=== PATIENT | male | born 1945 | race Caucasian/White ===

== ENCOUNTER 2018-07-30 13:02 | Observation (INO) | payer MEDICARE, BC ==
--- NOTE | 2018-07-30 13:32 | ED ---
Chest Pain HPI - General Chief Complaint: Chest Pain Stated Complaint: chest pain Time Seen by Provider: 07/30/18 13:22 Source: patient, RN notes reviewed, old records reviewed Mode of arrival: wheelchair Limitations: no limitations - History of Present Illness Initial Comments: This is a 72-year-old male to the ER for evasive chest pain. Left-sided chest pain heaviness on his chest feels like someone is pressing down his chest. Patient's history of heart disease and chest pain. States prior heart attack with similar also included arm pain. Patient has no recent travel history no sick contacts no fevers, maybe some mild diaphoresis no significant shortness of breath. No recent cardiac evaluation MD Complaint: chest pain -: minutes(s) Onset: during rest Pain Location: substernal, left chest, right chest Pain Radiation: none Severity: moderate Quality: tightness, heaviness Consistency: constant Improves With: nitroglycerin Worsens With: nothing Anginal Symptoms: diaphoresis, dyspnea Treatments Prior to Arrival: none - Related Data Home Medications Medication Instructions Recorded Confirmed Aspirin 325 mg PO HS 11/23/15 07/30/18 Atorvastatin [Lipitor] 20 mg PO HS 11/23/15 07/30/18 Hydrochlorothiazide 12.5 mg PO QAM 11/23/15 07/30/18 Losartan Potassium 100 mg PO QAM 11/23/15 07/30/18 Nitroglycerin Sl Tabs [Nitrostat] 0.4 mg SL Q5M PRN 11/23/15 07/30/18 Omeprazole [PriLOSEC] 40 mg PO QAM 11/23/15 07/30/18 amLODIPine [Norvasc] 2.5 mg PO QAM 11/23/15 07/30/18 metFORMIN HCL [Glucophage] 500 mg PO TID 11/23/15 07/30/18 Tamsulosin HCl [Flomax] 0.4 mg PO HS 07/30/18 07/30/18 Allergies Allergy/AdvReac Type Severity Reaction Status Date / Time Cephalosporins Allergy Rash/Hives. Verified 07/30/18 13:30 ITCHING ezetimibe Allergy Rash/Hives Verified 07/30/18 13:30 Iodinated Contrast- Oral and Allergy Rash/Hives, Verified 07/30/18 13:30 IV Dye ITCHING [Iodinated Contrast Media - IV Dye] Penicillins Allergy Rash/Hives. Verified 07/30/18 13:30 ITCHING rosuvastatin calcium Allergy Unknown Verified 07/30/18 13:30 [From Crestor] Sulfa (Sulfonamide Allergy Rash/Hives. Verified 07/30/18 13:30 Antibiotics) ITCHING Review of Systems ROS Statement: Those systems with pertinent positive or pertinent negative responses have been documented in the HPI. ROS Other: All systems not noted in ROS Statement are negative. EKG Findings - EKG Comments: EKG Findings:: EKG shows normal sinus rhythm rate of 71, NM 182, QRS 120, QTC 445 Past Medical History Past Medical History: Coronary Artery Disease (CAD), Cancer, Diabetes Mellitus, GERD/Reflux, Hyperlipidemia, Hypertension, Myocardial Infarction (non Q-wave) Additional Past Medical History / Comment(s): MELANOMA Last Myocardial Infarction Date:: 08/02/2006 History of Any Multi-Drug Resistant Organisms: None Reported Past Surgical History: Heart Catheterization, Heart Catheterization With Stent, Hernia Repair Additional Past Surgical History / Comment(s): MELANOMA REMOVED FROM LEFT EAR & UPPER LIP. ANGIOPLASTY IN 2007. Additional Past Anesthesia/Blood Transfusion Reaction / Comment(s): DIFFICULTY URINATING AFTER ANESTHESIA. Date of Last Stent Placement:: Past Psychological History: No Psychological Hx Reported Smoking Status: Former smoker Past Alcohol Use History: None Reported Past Drug Use History: None Reported - Past Family History Mother Family Medical History: Cancer General Exam Limitations: no limitations General appearance: alert, in no apparent distress Head exam: Present: atraumatic, normocephalic, normal inspection Eye exam: Present: normal appearance, PERRL, EOMI. Absent: scleral icterus, conjunctival injection, periorbital swelling ENT exam: Present: normal exam, mucous membranes moist Neck exam: Present: normal inspection. Absent: tenderness, meningismus, lymphadenopathy Respiratory exam: Present: normal lung sounds bilaterally. Absent: respiratory distress, wheezes, rales, rhonchi, stridor Cardiovascular Exam: Present: regular rate, normal rhythm, normal heart sounds. Absent: systolic murmur, diastolic murmur, rubs, gallop, clicks GI/Abdominal exam: Present: soft, normal bowel sounds. Absent: distended, tenderness, guarding, rebound, rigid Extremities exam: Present: normal inspection, full ROM, normal capillary refill. Absent: tenderness, pedal edema, joint swelling, calf tenderness Back exam: Present: normal inspection Neurological exam: Present: alert, oriented X3, CN II-XII intact Psychiatric exam: Present: normal affect, normal mood Skin exam: Present: warm, dry, intact, normal color. Absent: rash Course Vital Signs 07/30/18 07/30/18 13:03 14:30 Temperature 97.6 F Pulse Rate 81 67 Respiratory 18 18 Rate Blood Pressure 151/84 141/83 O2 Sat by Pulse 97 100 Oximetry - Reevaluation(s) Reevaluation #1: 07/30/18 15:21 Medical records reviewed Reevaluation #2: 07/30/18 15:21 A she still having pain Chest Pain MDM - MDM 69 female the ER for evaluation chest pain. Patient is history of CAD with stenting 10 years ago. Patient be admitted for cardiac observation Critical Care Time Critical Care Time: Yes Total Critical Care Time: 31 Disposition Clinical Impression: Chest pain Disposition: ADMITTED IP TO THIS HOSP Condition: Undetermined Instructions (If sedation given, give patient instructions): Chest Pain (ED) Is patient prescribed a controlled substance at d/c from ED?: No Referrals: Ismael Johnson DO [Primary Care Provider] - 1-2 days
--- NOTE | 2018-07-30 14:07 | XR ---
EXAMINATION TYPE: XR chest 2V DATE OF EXAM: 07/30/2018 COMPARISON: NONE TECHNIQUE: PA and lateral views submitted. HISTORY: Chest pain FINDINGS: There is limited inspiration. Hypertrophic change of the vertebral column. Assessment interstitium li mited by reduced inspiration. Arthropathy of the shoulders. The lungs are clear and there is no pneu mothorax, pleural effusion, or focal pneumonia. IMPRESSION: 1. No acute process.
[2018-07-30 14:28] LABS: Basophils % (A) 0 %; Eosinophils # (A) 0.2 k/uL (0-0.7); Eosinophils % (A) 1 %; HCT 47.1 % (39.0-53.0); HGB 15.6 gm/dL (13.0-17.5); Lymphocytes # (A) 1.8 k/uL (1.0-4.8); Lymphocytes % (A) 16 %; MCH 29.8 pg (25.0-35.0); MCHC 33.1 g/dL (31.0-37.0); MCV 90.1 fL (80.0-100.0); Mean Platelet Volume 7.6; Monocytes # (A) 0.8 k/uL (0-1.0); Monocytes % (A) 7 %; Neutrophils # (A) 8.3 k/uL (1.3-7.7); Neutrophils % (A) 73 %; Platelet Count 263 k/uL (150-450); RBC 5.23 m/uL (4.30-5.90); RDW 13.3 % (11.5-15.5); WBC 11.3 k/uL (3.8-10.6)
[2018-07-30 14:37] LABS: Prothrombin Time 10.7 sec (9.0-12.0)
[2018-07-30 14:43] LABS: ALT 40 U/L (21-72); AST 28 U/L (17-59); Albumin 4.1 g/dL (3.5-5.0); Alkaline Phosphatase 78 U/L (38-126); Anion Gap 7 mmol/L; Blood Urea Nitrogen 13 mg/dL (9-20); Calcium 9.6 mg/dL (8.4-10.2); Carbon Dioxide 29 mmol/L (22-30); Chloride 104 mmol/L (98-107); Glucose 151 mg/dL (74-99); Lipase 76 U/L (23-300); Magnesium 1.5 mg/dL (1.6-2.3); Potassium 4.2 mmol/L (3.5-5.1); Sodium 140 mmol/L (137-145); Total Bilirubin 0.7 mg/dL (0.2-1.3); Total Protein 7.3 g/dL (6.3-8.2)
[2018-07-30 14:51] LABS: Creatine Kinase 96 U/L (55-170)
[2018-07-30 15:04] LABS: Creatine Kinase MB 2.1 ng/mL (0.0-2.4); Troponin I <0.012 ng/mL (0.000-0.034)
[2018-07-30] MEDS ORDERED: NITROGLYCERIN SL TABS 0.4 MG TAB SUBLINGUAL PRN (15:18)
[2018-07-30] MEDS ORDERED: ASPIRIN 81 MG PO STA (15:18)
[2018-07-30 20:18] LABS: Glucose,Whole Blood 178 mg/dL (75-99)
[2018-07-30 20:44] LABS: Creatine Kinase 83 U/L (55-170)
[2018-07-30 20:57] LABS: Creatine Kinase MB 1.4 ng/mL (0.0-2.4); Troponin I <0.012 ng/mL (0.000-0.034)
[2018-07-30] MEDS ORDERED: TAMSULOSIN 0.4 MG CAP.ER.24H PO SCH (21:00)
[2018-07-30] MEDS ORDERED: ASPIRIN 325 MG TAB PO SCH (21:00)
[2018-07-30] MEDS ORDERED: ATORVASTATIN 20 MG TAB PO SCH (21:00)
[2018-07-31 00:48] LABS: Cholesterol 135 mg/dL (<200); HDL Cholesterol 33 mg/dL (40-60); LDL Cholesterol,Calculated 65 mg/dL (0-99); Triglycerides 187 mg/dL (<150)
[2018-07-31 01:35] LABS: Creatine Kinase 78 U/L (55-170)
[2018-07-31 01:48] LABS: Creatine Kinase MB 1.4 ng/mL (0.0-2.4); Troponin I <0.012 ng/mL (0.000-0.034)
[2018-07-31 06:48] LABS: Glucose,Whole Blood 171 mg/dL (75-99)
[2018-07-31] MEDS ORDERED: PANTOPRAZOLE 40 MG TABLET PO SCH (07:30)
[2018-07-31] MEDS ORDERED: ALPRAZolam 0.5 MG TAB PO PRN (08:00)
[2018-07-31] MEDS ORDERED: ATORVASTATIN 80 MG TAB PO STA (08:00)
[2018-07-31] MEDS ORDERED: SODIUM CHLORIDE 0.9% 1,000 ML in EMPTY BAG 1 BAG IV ONE (08:00)
[2018-07-31] MEDS ORDERED: NITROGLYCERIN SL TABS 0.4 MG TAB SUBLINGUAL PRN (08:00)
[2018-07-31] MEDS ORDERED: ALPRAZolam 0.25 MG TAB PO PRN (08:00)
[2018-07-31] MEDS ORDERED: ASPIRIN 325 MG TAB PO STA (08:00)
[2018-07-31 08:12] VITALS: RESP 16
[2018-07-31] MEDS ORDERED: LOSARTAN 50 MG TAB PO SCH (09:00)
[2018-07-31] MEDS ORDERED: amLODIPine 2.5 MG TAB PO SCH (09:00)
[2018-07-31] MEDS ORDERED: HYDROCHLOROTHIAZIDE 12.5 MG CAP PO SCH (09:00)
[2018-07-31] MEDS ORDERED: Magnesium Replacement Protocol 1 EACH MISC MISCELLANE PRN (09:05)
--- NOTE | 2018-07-31 09:07 | P.CRDCN ---
History of Present Illness History of present illness: This is a pleasant 72-year-old male past medical history significant for coronary artery disease status post PCI to the circumflex artery 2006 and again in 2007, diabetes mellitus, dyslipidemia, hypertension, gastroesophageal reflux disease and former nicotine dependence. He follows in the office with Dr. Romero. If he has to see him in consultation for symptoms of chest pain. He presented to the hospital yesterday afternoon with symptoms of an achy sensation in the midsternal region with radiation across both sides of his chest. He states the pain was intermittent in nature and came with no specific aggravating factor. He took sublingual nitroglycerin at home and the pain started and it did relieve his discomfort although the pain did come back subsequently thereafter. He is currently chest pain-free. He denies radiation to the arm, back, neck or jaw. He also denies associated shortness of breath, dizziness, nausea, vomiting or diaphoresis. He states this pain feels similar in nature to it did in 1999 when he suffered a myocardial infarction. Although at that time he waited quite a few days before coming for evaluation and the pain was much more intense and didn't radiate to his arms which is not at this time. EKG reveals sinus mechanism with T-wave inversions noted inferiorly and left axis deviation. Chest x-ray is negative for acute cardiopulmonary process. Laboratory data reviewed, WBC 11.3, hemoglobin 15.6, platelets 263, sodium 140, potassium 4.2, magnesium 1.5, creatinine 0.82, cardiac enzymes negative 3, LDL 65 and HDL 33. Current cardiac medications include aspirin 325 mg daily, atorvastatin 20 mg daily, hydrochlorothiazide 12.5 mg daily, losartan 100 mg daily and amlodipine 2.5 mg daily. At the time of my exam: CONSTITUTIONAL: Denies fever. Denies chills. EYES: Denies blurred vision. Denies vision changes. Denies eye pain. EARS, NOSE, MOUTH & THROAT: Denies headache. Denies sore throat. Denies ear pain. CARDIOVASCULAR: Denies chest pain. Denies shortness of breath. Denies orthopnea. Denies PND. Denies palpitations. RESPIRATORY: Denies cough. GASTROINTESTINAL: Denies abdominal pain. Denies diarrhea. Denies constipation. Denies nausea. Denies vomiting. MUSCULOSKELETAL: Denies myalgias. INTEGUMENTARY: Denies pruitis. Denies rash. NEUROLOGIC: Denies numbness. Denies tingling. Denies weakness. PSYCHIATRIC: Denies anxiety. Denies depression. ENDOCRINE: Denies fatigue. Denies weight change. Denies polydipsia. Denies polyurina. GENITOURINARY: Denies burning, hematuria or urgency with micturation. HEMATOLOGIC: Denies history of anemia. Denies bleeding. Blood pressure 157/85 heart rate 68 afebrile maintaining oxygen saturation on room air GENERAL: This is a 72-year-old occasion male in no apparent distress at the time of my examination. HEENT: Head is atraumatic, normocephalic. Pupils are equal, round. Sclerae anicteric. Conjunctivae are clear. Mucous membranes of the mouth are moist. Neck is supple. There is no jugular venous distention. No carotid bruit is heard. LUNGS: Clear to auscultation no wheezes, rales or rhonchi. No chest wall tenderness is noted on palpation or with deep breathing. HEART: Regular rate and rhythm without murmurs, rubs or gallops. S1 and S2 heard. ABDOMEN: Soft, nontender. Bowel sounds are heard. No organomegaly noted. EXTREMITIES: No evidence of peripheral edema and no calf tenderness noted. VASCULAR: Radial and dorsalis pedis pulses palpated, no evidence of clubbing. NEUROLOGIC: Patient is awake, alert and oriented x3. ASSESSMENT Unstable angina with EKG changes History of coronary artery disease status post angioplasty to the circumflex artery 2006 and again in 2007 Hypertension Dyslipidemia Diabetes mellitus Hypomagnesemia PLAN Recommend proceeding with cardiac catheterization to assess for progression of coronary artery disease. I have discussed the risks, benefits and alternative therapies for the above-mentioned procedure and for both sedation/analgesia as well as necessary blood product administration, if indicated, as they pertain to this patient. The patient has indicated understanding and acceptance of the risks and procedures discussed. Questions have been answered appropriately and he is agreeable to move forward with the above stated procedure. Replace magnesium per protocol. Obtain 2-D echocardiogram and Doppler study to assess cardiac structure and function. Resume aspirin, atorvastatin, hydrochlorothiazide, losartan and amlodipine as previously ordered. Further recommendations to follow based upon clinical course. Thank you kindly for this consultation. Nurse Practitioner note has been reviewed, I agree with a documented findings and plan of care. Patient was seen and examined. 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 ANGIOPLASTY IN 2007.rt rotator cuff Additional Past Anesthesia/Blood Transfusion Reaction / Comment(s): DIFFICULTY URINATING AFTER ANESTHESIA. Date of Last Stent Placement:: Smoking Status: Former smoker - Past Family History Mother Family Medical History: Cancer Medications and Allergies Home Medications Medication Instructions Recorded Confirmed Type Aspirin 325 mg PO HS 11/23/15 07/30/18 History Atorvastatin [Lipitor] 20 mg PO HS 11/23/15 07/30/18 History Hydrochlorothiazide 12.5 mg PO QAM 11/23/15 07/30/18 History Losartan Potassium 100 mg PO QAM 11/23/15 07/30/18 History Nitroglycerin Sl Tabs [Nitrostat] 0.4 mg SL Q5M PRN 11/23/15 07/30/18 History Omeprazole [PriLOSEC] 40 mg PO QAM 11/23/15 07/30/18 History amLODIPine [Norvasc] 2.5 mg PO QAM 11/23/15 07/30/18 History metFORMIN HCL [Glucophage] 500 mg PO TID 11/23/15 07/30/18 History Tamsulosin HCl [Flomax] 0.4 mg PO HS 07/30/18 07/30/18 History Allergies Allergy/AdvReac Type Severity Reaction Status Date / Time Cephalosporins Allergy Rash/Hives. Verified 07/30/18 13:30 ITCHING ezetimibe Allergy Rash/Hives Verified 07/30/18 13:30 Iodinated Contrast- Oral and Allergy Rash/Hives, Verified 07/30/18 13:30 IV Dye ITCHING [Iodinated Contrast Media - IV Dye] Penicillins Allergy Rash/Hives. Verified 07/30/18 13:30 ITCHING rosuvastatin calcium Allergy Unknown Verified 07/30/18 13:30 [From Crestor] Sulfa (Sulfonamide Allergy Rash/Hives. Verified 07/30/18 13:30 Antibiotics) ITCHING Physical Exam Vitals: Vital Signs Temp Pulse Pulse Resp BP BP Pulse Ox 07/31/18 08:00 97.6 F 68 16 157/85 95 07/31/18 07:54 65 18 07/31/18 04:00 98.5 F 65 18 156/77 96 07/31/18 03:49 18 07/30/18 23:17 18 07/30/18 23:11 98.7 F 73 18 165/77 97 07/30/18 20:00 98.1 F 65 18 174/74 96 07/30/18 16:44 99.2 F 83 18 156/90 98 07/30/18 16:30 65 16 07/30/18 15:28 75 18 130/89 100 07/30/18 14:30 67 18 141/83 100 07/30/18 13:03 97.6 F 81 18 151/84 97 Intake and Output 07/30/18 07/31/18 07/31/18 22:59 06:59 14:59 Other: Voiding Method Toilet Toilet Toilet # Voids 1 1 Results 07/30/18 13:32 07/30/18 13:32 Cardiac Enzymes 07/30/18 07/30/18 07/30/18 Range/Units 13:32 13:32 20:11 AST 28 (17-59) U/L CK-MB (CK-2) 2.1 1.4 (0.0-2.4) ng/mL Troponin I <0.012 <0.012 (0.000-0.034) ng/mL 07/31/18 Range/Units 00:58 AST (17-59) U/L CK-MB (CK-2) 1.4 (0.0-2.4) ng/mL Troponin I <0.012 (0.000-0.034) ng/mL Coagulation 07/30/18 Range/Units 13:32 PT 10.7 (9.0-12.0) sec APTT 24.0 (22.0-30.0) sec Lipids 07/30/18 Range/Units 13:32 Triglycerides 187 H (<150) mg/dL Cholesterol 135 (<200) mg/dL HDL Cholesterol 33 L (40-60) mg/dL CBC 07/30/18 Range/Units 13:32 WBC 11.3 H (3.8-10.6) k/uL RBC 5.23 (4.30-5.90) m/uL Hgb 15.6 (13.0-17.5) gm/dL Hct 47.1 (39.0-53.0) % Plt Count 263 (150-450) k/uL Comprehensive Metabolic Panel 07/30/18 Range/Units 13:32 Sodium 140 (137-145) mmol/L Potassium 4.2 (3.5-5.1) mmol/L Chloride 104 (98-107) mmol/L Carbon Dioxide 29 (22-30) mmol/L BUN 13 (9-20) mg/dL Creatinine 0.82 (0.66-1.25) mg/dL Glucose 151 H (74-99) mg/dL Calcium 9.6 (8.4-10.2) mg/dL AST 28 (17-59) U/L ALT 40 (21-72) U/L Alkaline Phosphatase 78 (38-126) U/L Total Protein 7.3 (6.3-8.2) g/dL Albumin 4.1 (3.5-5.0) g/dL Current Medications Generic Name Dose Route Start Last Admin Trade Name Freq PRN Reason Stop Dose Admin Alprazolam 0.25 mg 07/31/18 08:00 Xanax PO Q6HR PRN Mild Anxiety Alprazolam 0.5 mg 07/31/18 08:00 Xanax PO Q6HR PRN Moderate Anxiety Amlodipine Besylate 2.5 mg 07/31/18 09:00 Norvasc PO QAM [facility] Aspirin 325 mg 08/01/18 09:00 Aspirin PO DAILY [facility] Atorvastatin Calcium 20 mg 07/30/18 21:00 07/30/18 19:52 Lipitor PO 20 mg HS [facility] Administration Hydrochlorothiazide 12.5 mg 07/31/18 09:00 Hydrodiuril PO QAM [facility] Sodium Chloride 1,000 ml/ IV 1,000 mls @ 81.64 mls/hr 07/31/18 08:00 Solution IV 07/31/18 20:14 .[id number] ONE 1 ML/KG/HR Losartan Potassium 100 mg 07/31/18 09:00 Cozaar PO QAM [facility] Nitroglycerin 0.4 mg 07/30/18 15:18 Nitrostat SUBLINGUAL Q5M PRN Chest Pain Pantoprazole Sodium 40 mg 07/31/18 07:30 Protonix PO AC-BRKFST [facility] Tamsulosin HCl 0.4 mg 07/30/18 21:00 07/30/18 19:52 Flomax PO 0.4 mg HS [facility] Administration Intake and Output 07/30/18 07/31/18 07/31/18 22:59 06:59 14:59 Other: Voiding Method Toilet Toilet Toilet # Voids 1 1 07/30/18 13:32 07/30/18 13:32
[2018-07-31] MEDS ORDERED: FAMOTIDINE 20 MG/2 ML VIAL IV STA (09:26)
[2018-07-31] MEDS ORDERED: diphenhydrAMINE 50 MG/ML 1 ML VIAL IVP STA (09:26)
[2018-07-31] MEDS ORDERED: methylPREDNISolone SOD SUCCI 125 MG/2 ML VIAL IV STA (09:26)
[2018-07-31] MEDS: MAGNESIUM SULFATE-D5W PMX 1 GM in DEXTROSE/WATER 1 100ML.BAG IVPB SCH ×2 (09:51→11:02)
--- NOTE | 2018-07-31 10:06 | ECHOF ---
Referral Reason: MEASUREMENTS -------- HEIGHT: 177.8 cm WEIGHT: 81.6 kg BP: IVSd: 1.1 cm (0.6 - 1.1) LVIDd: 4.1 cm (3.9 - 5.3) LVPWd: 1.0 cm (0.6 - 1.1) IVSs: 1.7 cm LVIDs: 2.6 cm LVPWs: 1.6 cm LAESV Index (A-L): 26.22 ml/m Ao Diam: 3.5 cm (2.0 - 3.7) AV Cusp: 2.2 cm (1.5 - 2.6) LA Diam: 3.6 cm (2.7 - 3.8) MV EXCURSION: 13.536 mm (> 18.000) MV EF SLOPE: 97 mm/s (70 - 150) EPSS: 0.5 cm RAP: 5.00 mmHg RVSP: 9.86 mmHg FINDINGS -------- Sinus rhythm. This was a technically good study. The left ventricular size is normal. Left ventricular wall thickness is normal. Overall left vent ricular systolic function is normal with, an EF between 55 - 60 %. Mid inferior LV wall motion is h ypokinetic. The right ventricle is normal in size and function. The left atrium is normal in size. The right atrium is normal in size. The aortic valve is trileaflet, and appears structurally normal. No aortic stenosis or regurgitation. There is trace mitral regurgitation. Trace tricuspid regurgitation present. The right ventricular systolic pressure, as measured by Dopp ler, is 9.86mmHg. Pulmonic valve appears structurally normal. The aortic root size is normal. IVC Not well visulized. The pericardium is normal. CONCLUSIONS -------- 1. Sinus rhythm. 2. This was a technically good study. 3. The left ventricular size is normal. 4. Left ventricular wall thickness is normal. 5. Overall left ventricular systolic function is normal with, an EF between 55 - 60 %. 6. Mid inferior LV wall motion is hypokinetic. 7. The right ventricle is normal in size and function. 8. The left atrium is normal in size. 9. The right atrium is normal in size. 10. The aortic valve is trileaflet, and appears structurally normal. No aortic stenosis or regurgitat ion. 11. There is trace mitral regurgitation. 12. Trace tricuspid regurgitation present. 13. The right ventricular systolic pressure, as measured by Doppler, is 9.86mmHg. 14. Pulmonic valve appears structurally normal. 15. The aortic root size is normal. 16. IVC Not well visulized. 17. The pericardium is normal. BUS STARTER: Rita Granger RDCS
[2018-07-31] MEDS ORDERED: IV FLUID CONTINUATION 850 ML IV ONE (12:15)
[2018-07-31] MEDS ORDERED: LIDOCAINE 1% INJ 10MG/ML (20 ML MDV) ONE (12:26)
[2018-07-31] MEDS ORDERED: fentaNYL (PF) 50 MCG/ML 2 ML AMP ONE (12:27)
[2018-07-31] MEDS: MIDAZOLAM 2 MG/2 ML VIAL IVP ONE ×2 (12:28→12:31)
[2018-07-31] MEDS ORDERED: fentaNYL (PF) 50 MCG/ML 2 ML AMP IVP ONE (12:29)
[2018-07-31] MEDS ORDERED: LIDOCAINE 1% INJ 10MG/ML (20 ML MDV) SQ ONE (12:29)
[2018-07-31] MEDS ORDERED: IOPAMIDOL-370 100ML BTL INJ ONE (12:39)
[2018-07-31] MEDS ORDERED: RX INFO: IV CONTRAST WAS GIVEN 1 EACH MISC MISCELLANE PRN (13:18)
[2018-07-31 13:31] LABS: Glucose,Whole Blood 246 mg/dL (75-99)
[2018-07-31 13:32] VITALS: TEMP 99.3
[2018-07-31 15:23] VITALS: BP 166/70; PULSE 73
--- NOTE | 2018-07-31 16:10 | CC ---
CARDIAC CATHETERIZATION REPORT INDICATION: Unstable angina. PROCEDURE NOTE: After obtaining informed consent, left heart catheterization and coronary angiogram were performed via the right femoral artery using standard Jordin catheters. Patient tolerated the procedure well without any obvious immediate complications. A femoral angiogram was performed and Angio-Seal was deployed for hemostasis. Patient received moderate conscious sedation. Total sedation time was 15 minutes. FINDINGS: HEMODYNAMICS: Left ventricular end-diastolic pressure is 15 mm there is no significant gradient across aortic valve. LEFT VENTRICULOGRAM: Ventriculogram is not performed. ANGIOGRAPHIC DATA: LEFT MAIN CORONARY ARTERY: Left main coronary artery is a normal-sized vessel and is free of stenosis. Divides into left anterior descending coronary artery and circumflex coronary artery. LEFT ANTERIOR DESCENDING CORONARY ARTERY: LAD and its branches, circumflex coronary artery and its branches are free of significant stenosis. The previously stented segment in the circ appears patent. RIGHT CORONARY ARTERY : Right coronary artery shows mild nonobstructive disease. CONCLUSIONS: Patent stent within the circumflex coronary artery. PLAN: Patient's chest pain is probably noncardiac in origin and management is going to be in the form of risk factor modification and optimal medical therapy. MMODL / IJN: [id number] /
[2018-07-31 16:59] LABS: Glucose,Whole Blood 258 mg/dL (75-99)
[2018-07-31] MEDS ORDERED: INSULIN ASPART (NovoLOG) 100 UNIT/ML VIAL SQ SCH (17:30)
[2018-08-01] MEDS ORDERED: ASPIRIN 325 MG TAB PO SCH (09:00)
[2018-08-01] MEDS ORDERED: ATORVASTATIN 80 MG TAB PO SCH (09:00)
--- NOTE | 2018-08-04 22:23 | P.HPIM ---
History of Present Illness H&P Date: 07/31/18 Chief Complaint: Atypical chest pain Patient is a pleasant 72-year-old white male with known cardiac disease and stents who had left sternal chest pain radiating to his left arm and across his mid chest he took a nitroglycerin and felt better but then the pain some returned and he presented to the emergency department at [facility]. He is subsequently admitted. He currently denies any chest pain he is resting comfortably in bed awaiting cardiac catheterization. Review of Systems GENERAL: Patient denies fever. Denies chills. EYES: Denies blurred vision. Denies vision changes. Denies eye pain. EARS, NOSE, MOUTH, & THROAT: Denies headache. Denies sore throat. Denies ear pain. RESPIRATORY: Denies cough. Denies shortness of breath. Denies sputum production. Denies hemoptysis. CARDIOVASCULAR: Admits chest pain and pressure. Denies palpitations. Denies arrhythmias. GASTROINTESTINAL: Denies abdominal pain. Denies diarrhea. Denies constipation. Denies nausea. Denies vomiting. Denies heartburn. Denies blood in the stool. GENITOURINARY: Denies urinary frequency. Denies burning. Denies dysuria. Denies cloudy urine. Denies blood in the urine. MUSCULOSKELETAL: Denies myalgias. Denies joint swelling. Denies decreased range of motion beyond patients baseline. INTEGUMENTARY: Denies pruitis. Denies rash. PSYCHIATRIC: Denies suicidal or homicial ideations. ENDOCRINE: Denies weight change. Denies polydipsia. Denies polyuria. HEMATOLOGIC: Denies bleeding disorders. 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 ANGIOPLASTY IN 2007.rt rotator cuff Additional Past Anesthesia/Blood Transfusion Reaction / Comment(s): DIFFICULTY URINATING AFTER ANESTHESIA. Date of Last Stent Placement:: Smoking Status: Former smoker - Past Family History Mother Family Medical History: Cancer Medications and Allergies Home Medications Medication Instructions Recorded Confirmed Type Aspirin 325 mg PO HS 11/23/15 07/30/18 History Atorvastatin [Lipitor] 20 mg PO HS 11/23/15 07/30/18 History Hydrochlorothiazide 12.5 mg PO QAM 11/23/15 07/30/18 History Losartan Potassium 100 mg PO QAM 11/23/15 07/30/18 History Nitroglycerin Sl Tabs [Nitrostat] 0.4 mg SL Q5M PRN 11/23/15 07/30/18 History Omeprazole [PriLOSEC] 40 mg PO QAM 11/23/15 07/30/18 History amLODIPine [Norvasc] 2.5 mg PO QAM 11/23/15 07/30/18 History metFORMIN HCL [Glucophage] 500 mg PO TID 11/23/15 07/30/18 History Tamsulosin HCl [Flomax] 0.4 mg PO HS 07/30/18 07/30/18 History Allergies Allergy/AdvReac Type Severity Reaction Status Date / Time Cephalosporins Allergy Rash/Hives. Verified 07/30/18 13:30 ITCHING ezetimibe Allergy Rash/Hives Verified 07/30/18 13:30 Iodinated Contrast- Oral and Allergy Rash/Hives, Verified 07/30/18 13:30 IV Dye ITCHING [Iodinated Contrast Media - IV Dye] Penicillins Allergy Rash/Hives. Verified 07/30/18 13:30 ITCHING rosuvastatin calcium Allergy Unknown Verified 07/30/18 13:30 [From Crestor] Sulfa (Sulfonamide Allergy Rash/Hives. Verified 07/30/18 13:30 Antibiotics) ITCHING Physical Exam Osteopathic Statement: *. No significant issues noted on an osteopathic structural exam other than those noted in the History and Physical/Consult. GENERAL: This is a -72 year-old in no apparent distress at the time of examination. Pleasant and cooperative. HEENT: Head is atraumatic, normocephalic. Pupils are equal, round, and reactive to light. Sclerae anicteric. Conjunctivae are clear. Mucus membranes of the mouth are moist. Neck is supple. RESPIRATORY: Clear to auscultation. No wheezes, rales, or rhonchi. No use of accessory muscles. Patient maintaining oxygen saturation greater than 92%. No chest wall tenderness is noted on palpation or with deep breathing. CARDIOVASCULAR: Regular rate and rhythm. S1 and S2 noted. No systolic or diastolic murmur auscultated. No JVD noted. No S3 or S4 noted. GASTROINTESTINAL: No distention noted. Abdomen soft and round. Normal active bowel sounds auscultated x 4 quadrants. No pain or tenderness noted upon palpation. INTEGUMENTARY: No cyanosis. No jaundice. No rashes noted. No cellulitis noted. EXTREMITIES: 2+ peripheral pulses. No evidence of peripheral edema. No calf tenderness noted. NEUROLOGIC: Cranial nerves II-XII intact. PSYCHIATRIC: Awake, alert, and oriented X 3. Appropriate affect. Intact judgement and insight. Results CBC & Chem 7: 07/30/18 13:32 07/30/18 13:32 Thrombosis Risk Factor Assmnt - Choose All That Apply Other Risk Factors: Yes Each Risk Factor Represents 2 Points: Age 61-74 years Thrombosis Risk Factor Assessment Total Risk Factor Score: 2 Thrombosis Risk Factor Assessment Level: Low Risk Assessment and Plan Assessment: Acute atypical chest pain. Known coronary artery artery disease with previous stents. Hypertension Hyperlipidemia Diabetes type 2 (1) Chest pain Status: Acute Code(s): R07.9 - CHEST PAIN, UNSPECIFIED SNOMED Code(s): 83376790 Plan: Plan and discharge summary patient underwent a heart catheterization and was found to have patent stents with no significant stenosis or occlusions. Patient was cleared by cardiology to be discharged in the evening and he went home with the above medications please count this is his discharge summary as well as his history and physical .
== END 2018-07-31 19:30 | disposition home or self-care (01) ==
LOC: EC 13:02 → 1SOBS 15:30
PROVIDERS: ADMIT Family Medicine; ATTEND Family Medicine
DX: R07.89 Other chest pain (principal); R61 Generalized hyperhidrosis; R06.00 Dyspnea, unspecified; I25.10 Atherosclerotic heart disease of native coronary artery without angina pectoris; E83.42 Hypomagnesemia; I25.2 Old myocardial infarction; E11.9 Type 2 diabetes mellitus without complications; K21.9 Gastro-esophageal reflux disease without esophagitis; E78.5 Hyperlipidemia, unspecified; I10 Essential (primary) hypertension; Z95.5 Presence of coronary angioplasty implant and graft; Z85.820 Personal history of malignant melanoma of skin; Z79.899 Other long term (current) drug therapy; Z79.82 Long term (current) use of aspirin; Z79.84 Long term (current) use of oral hypoglycemic drugs; Z88.0 Allergy status to penicillin; Z88.2 Allergy status to sulfonamides; Z88.8 Allergy status to other drugs, medicaments and biological substances; Z88.1 Allergy status to other antibiotic agents; Z91.041 Radiographic dye allergy status; Z87.891 Personal history of nicotine dependence; Z80.9 Family history of malignant neoplasm, unspecified
CPT/HCPCS: 93005 ×2; 96365; 96366; 96375; 99291; 36415; 93306; 93458; 83880; 80061; 80053; 82550 ×2; 82553 ×2; 83690; 83735; 84484 ×2; 85025; 85610; 85730; 71046; G0378 ×2; C1894; C1769; J2250; J1200; J2930; J2001; J3010; J3475; Q9967

== ENCOUNTER → 2019-01-15 | Outpatient (CLI) | payer MEDICARE, BC ==
--- NOTE | 2019-01-15 11:26 | MR ---
EXAMINATION TYPE: MR shoulder LT wo con DATE OF EXAM: 01/15/2019 COMPARISON: Outside left shoulder x-ray from 1 week ago. HISTORY: Left shoulder pain per order. Pain with difficulty raising arm overhead for 2 months per patient. TECHNIQUE: Multiplanar, multisequence imaging of the left shoulder is performed without contrast. FINDINGS: Rotator Cuff: Increased signal distal supraspinatus tendon. Infraspinatus tendon is intact. Subscapul yesi tendon shows some increased signal and thickening. No full-thickness retracted tears are identif ied. Rotator cuff muscle bulk is preserved. Acromioclavicular Joint: Moderate narrowing with moderate to severe capsular hypertrophy. Marked effa cement underlying fat plane and coronal image 13. Mild spurring. Glenohumeral Joint: Moderate to severe narrowing with mild spurring. Small joint effusion. Labrum: The labrum appears grossly intact given limitation of non-arthrogram study. Biceps Tendon: The long head of biceps is in normal location within bicipital groove. Bone marrow signal: No focal abnormal marrow signal is appreciated. Other: Marked fluid signal subdeltoid/subacromial bursa extends centrally along the superior aspect o f the supraspinatus muscle bulk. IMPRESSION: 1. Tendinopathy of supraspinatus and subscapularis. No rotator cuff tear is evident. 2. Moderate to severe glenohumeral and acromioclavicular joint arthropathy. Underlying impingement. 3. Moderate to severe subdeltoid/subacromial bursitis.
== END | disposition home or self-care (01) ==
LOC: RADMRIMAIN 08:04
PROVIDERS: ATTEND Orthopaedic Surgery
DX: M19.012 Primary osteoarthritis, left shoulder (principal); M75.52 Bursitis of left shoulder

== ENCOUNTER 2019-02-11 08:04 | Day surgery (SDC) | payer MEDICARE, BC ==
[2019-02-04 13:30] VITALS: BMI 26.4
--- NOTE | 2019-02-09 21:53 | HP ---
HISTORY AND PHYSICAL DATE OF SURGERY: 02/11/2019 Neto Dugan is a 73-year-old patient seen with progressive left shoulder pain. Treatment options were discussed with him. He elected to proceed with left shoulder arthroscopy. Consent was obtained. Medical clearance was provided by Dr. Ismael Johnson. PAST MEDICAL HISTORY: 1. Hypertension. 2. Hyperlipidemia. 3. [id number] diabetes. PAST SURGICAL HISTORY: Right shoulder arthroscopy. DAILY MEDICATIONS: 1. Hydrochlorothiazide. 2. Lipitor. 3. Losartan. 4. Omeprazole. 5. Amlodipine. 6. Metformin. ALLERGIES: PENICILLIN. SOCIAL HISTORY: Denies current tobacco use. PHYSICAL EVALUATION OF THE LEFT SHOULDER: Flexion is 80 degrees, abduction 60 degrees, external rotation 25 degrees. There is tenderness along the anterolateral acromion and rotator cuff insertion site. Impingement is positive at 30 degrees. Distal neurovascular exam is intact. LEFT SHOULDER RADIOGRAPHS: Left shoulder radiographs revealed a type II acromion, acromioclavicular osteoarthritic changes and cystic changes of the tuberosity. Left shoulder MRI revealed glenohumeral osteoarthritis and acromioclavicular osteoarthritis as well as tendinitis. IMPRESSION: 1. Left shoulder impingement with possible rotator cuff tear. 2. Left shoulder acromioclavicular joint osteoarthritis. 3. Left shoulder glenohumeral joint osteoarthritis. 4. Hypertension. 5. Hyperlipidemia. 6. [id number] diabetes. PLAN: Left shoulder arthroscopy with subacromial decompression, possible arthroscopic rotator cuff repair, probable Taye procedure and debridement. MMODL / IJN: [id number] /
[~2019-02-11 08:04] MED LIST: CLINDAMYCIN 900 MG in DEXTROSE 5% IN WATER 50 ML IVPB ONE; DEXAMETHASONE SOD PHOSPHATE 10 MG/ML 1 ML VIAL IV ONE; LACTATED RINGERS 1,000 ML IV SCH; MIDAZOLAM 2 MG/2 ML VIAL IV PRN; ONDANSETRON 4 MG/2 ML VIAL IVP ONE; fentaNYL (PF) 50 MCG/ML 2 ML AMP IV PRN
[2019-02-11 09:07] LABS: Glucose,Whole Blood 188 mg/dL (75-99)
[2019-02-11] MEDS ORDERED: MIDAZOLAM (PF) 2 MG/2 ML VIAL IVP ONE (09:10)
[2019-02-11] MEDS ORDERED: fentaNYL (PF) 50 MCG/ML 2 ML AMP IVP ONE (09:11)
--- NOTE | 2019-02-11 09:39 | P.ANPRN ---
Procedure Note - Anesthesia - Nerve Block Performed Left Interscalene Single Time Out Performed: Yes Date of Procedure: 02/11/19 Procedure Start Time: 09:08 Location of Patient Procedure: PreOp Indication: Acute Post-Operative Pain Specifically requested for management of pain by DrTami: Jeff Giraldo Sedation Type: Sedate with meaningful contact maintained Preparation: Sterile Prep Position: Supine Catheter: None Needle Types: Pajunk Needle Gauge: 21 Technique: Ultrasound (for identification of vascular and neuronal structures. picture saved) Injectate: 0.5% Ropivacaine (see comment for volume) (20cc) Blood Aspirated: No Pain Paresthesia on Injection Noted: No Resistance on Injection: Normal Events: Uneventful and Well Tolerated
[2019-02-11] MEDS ORDERED: ROPIVACAINE 5 MG/ML 30 ML VIAL ONE (10:14)
[2019-02-11] MEDS ORDERED: SUCCINYLCHOLINE CHLORIDE 100 MG/5 ML SYR IV ONE (10:14)
[2019-02-11] MEDS ORDERED: LIDOCAINE 1% INJ 10MG/ML (20 ML MDV) ONE (10:14)
[2019-02-11] MEDS ORDERED: MIDAZOLAM 2 MG/2 ML VIAL ONE (10:14)
[2019-02-11] MEDS ORDERED: fentaNYL (PF) 50 MCG/ML 2 ML AMP ONE (10:14)
[2019-02-11] MEDS ORDERED: PROPOFOL 10 MG/ML 20 ML VIAL IV ONE (10:14)
[2019-02-11 12:09] VITALS: TEMP 96.8
[2019-02-11 12:15] LABS: Glucose,Whole Blood 179 mg/dL (75-99)
--- NOTE | 2019-02-11 12:15 | P.OP ---
Date of Procedure: 02/11/19 Preoperative Diagnosis: Left shoulder impingement Postoperative Diagnosis: 1. Left shoulder rotator cuff tear 2. Left shoulder impingement 3. Left shoulder acromioclavicular joint osteoarthritis 4. Left shoulder partial long head biceps tendon tear 5. Left shoulder labral tear Procedure(s) Performed: 1. Left shoulder arthroscopic rotator cuff repair 2. Left shoulder arthroscopic subacromial decompression 3. Left shoulder arthroscopic Taye procedure 4. Left shoulder arthroscopic biceps tenotomy 5. Left shoulder arthroscopic debridement labral tear Anesthesia: GETA, regional (Interscalene block) Surgeon: Jeff Giraldo Topology Teacher #1: Eric Salvador Estimated Blood Loss (ml): 7 Pathology: none sent Condition: stable Disposition: PACU Indications for Procedure: 73-year-old patient seen with progressive left shoulder pain. After having treatment options discussed, he elected to proceed with arthroscopy Operative Findings: see description of procedure Description of Procedure: Patient underwent an interscalene block by department of anesthesia for postoperative pain management. The patient was then taken to the operative suite. The patient underwent a general anesthetic by the department of anesthesia. The patient was placed into a lateral position and secured. There was appropriate padding of the bony prominence. Left shoulder was then prepped and draped in normal sterile orthopedic fashion. We placed the extremity in 10 pounds of longitudinal traction. A posterior incision was now made for a posterior working portal site. The trocar and cannula were inserted into the glenohumeral joint. Arthroscopy was initiated. Spinal needle was now inserted anteriorly, to ascertain the anterior working portal site. An incision was now made in that area, a trocar was inserted followed by a probe. There was partial tearing long head biceps tendon with hyperemia. There were grade 1/2 chondromalacia changes central area glenoid fossa with no osteochondral tears present. There was some superficial tearing of the anterior labrum present. I performed an arthroscopic biceps tenotomy. I debrided the superficial labral tears down to stable tissue. The residual labrum was stable. Instruments were now removed from the glenohumeral joint. Utilizing the posterior working portal site, the trocar and cannula were inserted into the subacromial space. Arthroscopy initiated. I made an incision 2 fingerbreadths lateral to the acromion. I introduced my trocar followed by my [employer] ablator. I now began ablating thick subacromial bursal tissue, which exposed the undersurface of the anterior acromion. There was diminished subacromial space. There was a very prominent anterior acromion. A motorized bur was introduced and a subacromial decompression was performed. I also excised some osteophytes off the inferior aspect of the distal clavicle. The AC joint was visualized and noted to be fairly arthritic. The motorized bur was introduced in the anterior portal site and a Taye procedure was performed without difficulty, decompressing the AC joint nicely. I turned my attention to the rotator cuff. There was a 34 centimeter intrasubstance rotator cuff tear. I debrided the margins getting down to stable tendon tissue. I now with the assistance of Luis Miguel LEE passed 4 sutures. I now began repairing the tendon in a [id number] fashion with the sutures had passed. Suture limbs were clipped. The repair was probed and found to be stable. I injected 1 mL Renyte intra-articular. Instruments now removed from the portal sites. All portal s ites were approximated with nylon suture. Sterile dressings were applied followed by a shoulder sling. Eric LEE assisted in this complex case. The patient was awakened, transferred to a bed, and taken to recovery in stable condition.
[2019-02-11 13:00] VITALS: RESP 18
[2019-02-11 13:28] VITALS: BP 133/83; PULSE 75
== END 2019-02-11 13:58 | disposition home or self-care (01) ==
LOC: OR 08:04
PROVIDERS: ATTEND Orthopaedic Surgery
DX: M75.102 Unspecified rotator cuff tear or rupture of left shoulder, not specified as traumatic (principal); M25.812 Other specified joint disorders, left shoulder; M19.012 Primary osteoarthritis, left shoulder; S46.112A Strain of muscle, fascia and tendon of long head of biceps, left arm, initial encounter; S43.492A Other sprain of left shoulder joint, initial encounter; X58.XXXA Exposure to other specified factors, initial encounter; M94.212 Chondromalacia, left shoulder; M25.712 Osteophyte, left shoulder; I25.10 Atherosclerotic heart disease of native coronary artery without angina pectoris; Z95.5 Presence of coronary angioplasty implant and graft; I25.2 Old myocardial infarction; I10 Essential (primary) hypertension; I45.10 Unspecified right bundle-branch block; E78.5 Hyperlipidemia, unspecified; E78.00 Pure hypercholesterolemia, unspecified; E11.9 Type 2 diabetes mellitus without complications; K21.9 Gastro-esophageal reflux disease without esophagitis; C43.9 Malignant melanoma of skin, unspecified; Z87.891 Personal history of nicotine dependence; Z79.82 Long term (current) use of aspirin; Z79.84 Long term (current) use of oral hypoglycemic drugs; Z79.899 Other long term (current) drug therapy; Z88.0 Allergy status to penicillin; Z88.2 Allergy status to sulfonamides; Z88.8 Allergy status to other drugs, medicaments and biological substances; Z88.1 Allergy status to other antibiotic agents; Z91.041 Radiographic dye allergy status; Z80.8 Family history of malignant neoplasm of other organs or systems; Z82.5 Family history of asthma and other chronic lower respiratory diseases; Z97.2 Presence of dental prosthetic device (complete) (partial)
CPT/HCPCS: 29827; 29826; 29824; 64415; C1713; C1765; J2250 ×2; J1100; J2405; J2001; J3010; J2795; J0330; J2704

== ENCOUNTER → 2020-01-06 | Outpatient (CLI) | payer MEDICARE, BC ==
--- NOTE | 2020-01-06 15:26 | XR ---
EXAMINATION TYPE: XR chest 2V DATE OF EXAM: 01/06/2020 COMPARISON: Prior chest x-ray 07/30/2018 HISTORY: Cough TECHNIQUE: Frontal and lateral views of the chest are obtained. FINDINGS: There is no focal air space opacity, pleural effusion, or pneumothorax seen. The cardiac silhouette size is within normal limits. Coronary artery stent is in place. Question some basilar int erstitial changes. The osseous structures are intact. IMPRESSION: No acute cardiopulmonary process. Coronary artery disease, there may be some basilar int erstitial lung disease.
== END | disposition home or self-care (01) ==
LOC: RADXRMAIN 12:18
PROVIDERS: ATTEND Family Medicine
DX: I25.10 Atherosclerotic heart disease of native coronary artery without angina pectoris (principal); R05 Cough
CPT/HCPCS: 71046

== ENCOUNTER → 2020-04-17 | Outpatient (CLI) | payer MEDICARE, BC ==
[2020-04-17 10:58] LABS: Urine Creatinine 30.3 mg/dL
[2020-04-17 11:34] LABS: African American GFR (CKD) 96.5 (60.0-200.0); Albumin 4.2 g/dL (3.80-4.90); Albumin/Globulin Ratio 1.68 (1.60-3.17); BUN/Creat Ratio 21.11 Ratio (12.00-20.00); Calcium 9.2 mg/dL (8.7-10.3); Chol/HDL Ratio 3.13; Globulin 2.5 g/dL (1.6-3.3); LDL Cholesterol,Calculated 53.6 mg/dL (0.0-131.0); Non-African American GFR(CKD) 83.3 (60.0-200.0); Potassium 3.7 mmol/L (3.5-5.5); Total Protein 6.7 g/dL (6.2-8.2); VLDL Calculation 14.4 mg/dL (5.00-40.00)
[2020-04-17 13:12] LABS: Hemoglobin A1C 6.2 % (4.0-6.0)
== END | disposition home or self-care (01) ==
LOC: LABWHC1 07:07
PROVIDERS: ATTEND Internal Medicine Endocrinology, Diabetes & Metabolism
DX: E11.65 Type 2 diabetes mellitus with hyperglycemia (principal)
CPT/HCPCS: 36415; 80053; 80061; 82043; 82570; 83036; 84443

== ENCOUNTER → 2020-07-31 | Outpatient (CLI) | payer MEDICARE, BC ==
[2020-07-31 11:27] LABS: African American GFR (CKD) 101.3 (60.0-200.0); Albumin 4.5 g/dL (3.80-4.90); Albumin/Globulin Ratio 2.05 (1.60-3.17); Anion Gap 11.2 mmol/L (4.00-12.00); Calcium 9.6 mg/dL (8.7-10.3); Carbon Dioxide 28.8 mmol/L (21.6-31.8); Chol/HDL Ratio 3.8; Globulin 2.2 g/dL (1.6-3.3); LDL Cholesterol,Calculated 87.2 mg/dL (0.0-131.0); Non-African American GFR(CKD) 87.4 (60.0-200.0); Potassium 4.3 mmol/L (3.5-5.5); Total Bilirubin 0.9 mg/dL (0.2-1.2); Total Protein 6.7 g/dL (6.2-8.2); VLDL Calculation 24.8 mg/dL (5.00-40.00)
[2020-07-31 11:28] LABS: Basophils # (A) 0.04 X 10*3/uL (0.00-0.10); Basophils % (A) 0.4 %; Eosinophils # (A) 0.15 X 10*3/uL (0.04-0.35); Eosinophils % (A) 1.6 %; HCT 44.4 % (39.6-50.0); HGB 15.2 g/dL (13.0-17.0); Lymphocytes # (A) 1.31 X 10*3/uL (0.90-5.00); Lymphocytes % (A) 14.2 %; MCH 30.3 pg (27.0-32.0); MCHC 34.2 g/dL (32.0-37.0); MCV 88.6 fL (80.0-97.0); Monocytes # (A) 0.77 X 10*3/uL (0.20-1.00); Monocytes % (A) 8.4 %; Neutrophils # (A) 6.89 X 10*3/uL (1.80-7.70); Platelet Count 261 X 10*3/uL (140-440); RBC 5.01 X 10*6/uL (4.40-5.60); RDW 13.4 % (11.5-14.5)
[2020-07-31 11:35] LABS: T4, Free (Free Thyroxine) 1.1 ng/dL (0.80-1.80)
[2020-07-31 15:29] LABS: Hemoglobin A1C 6.2 % (4.0-6.0)
== END | disposition home or self-care (01) ==
LOC: LABWHC1 07:23
PROVIDERS: ATTEND Internal Medicine Endocrinology, Diabetes & Metabolism
DX: E11.65 Type 2 diabetes mellitus with hyperglycemia (principal); I10 Essential (primary) hypertension; E78.5 Hyperlipidemia, unspecified
CPT/HCPCS: 36415; 80053; 80061; 82043; 82570; 83036; 84439; 84443; 85025

== ENCOUNTER → 2021-03-02 | Outpatient (CLI) | payer MEDICARE, BC ==
[2021-03-02 11:34] LABS: HCT 43.5 % (39.6-50.0); HGB 14.9 g/dL (13.0-17.0); MCH 30.2 pg (27.0-32.0); MCHC 34.3 g/dL (32.0-37.0); MCV 88.2 fL (80.0-97.0); Mean Platelet Volume 10.8 fL (9.5-12.2); Platelet Count 247 X 10*3/uL (140-440); RBC 4.93 X 10*6/uL (4.40-5.60); RDW 13.2 % (11.5-14.5)
[2021-03-02 14:00] LABS: Hemoglobin A1C 5.9 % (4.0-6.0)
[2021-03-02 17:24] LABS: T4, Free (Free Thyroxine) 1.2 ng/dL (0.80-1.80)
[2021-03-02 17:45] LABS: African American GFR (CKD) 95.8 (60.0-200.0); Albumin 4.3 g/dL (3.80-4.90); Albumin/Globulin Ratio 1.65 (1.60-3.17); Anion Gap 11.2 mmol/L (4.00-12.00); BUN/Creat Ratio 15.56 Ratio (12.00-20.00); Calcium 9.2 mg/dL (8.7-10.3); Carbon Dioxide 25.8 mmol/L (21.6-31.8); Chol/HDL Ratio 3.53; Globulin 2.6 g/dL (1.6-3.3); Non-African American GFR(CKD) 82.7 (60.0-200.0); Potassium 3.7 mmol/L (3.5-5.5); Total Bilirubin 0.9 mg/dL (0.3-1.2); Total Protein 6.9 g/dL (6.2-8.2)
[2021-03-02 21:38] LABS: Urine Creatinine 126.6 mg/dL
== END | disposition home or self-care (01) ==
LOC: LABWHC1 07:07
PROVIDERS: ATTEND Internal Medicine Endocrinology, Diabetes & Metabolism
DX: E78.5 Hyperlipidemia, unspecified (principal); E11.65 Type 2 diabetes mellitus with hyperglycemia; I10 Essential (primary) hypertension
CPT/HCPCS: 36415; 80053; 80061; 82043; 82570; 83036; 84439; 84443; 85027

== ENCOUNTER 2021-10-14 15:48 | Inpatient (IN) | payer MEDICARE, BC ==
[2021-10-14] MEDS ORDERED: ALBUTEROL HFA INHALER INHALATION STA (16:08)
--- NOTE | 2021-10-14 16:33 | ED ---
General Adult HPI - General Chief complaint: Shortness of Breath Stated complaint: SOB,Lower Extremity Swelling Time Seen by Provider: 10/14/21 16:04 Source: patient, RN notes reviewed, old records reviewed Mode of arrival: ambulatory Limitations: no limitations - History of Present Illness Initial comments: 75-year-old male presenting for evaluation of cough and dyspnea. Patient has had a dry cough over the past proximally one week. He was put on azithromycin by the primary care physician. He states that this medication to cause lower extremity bilateral swelling. He has a known history of CAD. He denies fever or chills. Denies myalgias. Denies upper respiratory symptoms. No vomiting or diarrhea. Patient had low oxygen saturations upon arrival. He has not been vaccinated against coronavirus. - Related Data Home Medications Medication Instructions Recorded Confirmed Aspirin 325 mg PO HS 11/23/15 02/11/19 Atorvastatin [Lipitor] 20 mg PO HS 11/23/15 02/11/19 Hydrochlorothiazide 12.5 mg PO QAM 11/23/15 02/11/19 Losartan Potassium 100 mg PO 1500 11/23/15 02/11/19 Nitroglycerin Sl Tabs [Nitrostat] 0.4 mg SL Q5M PRN 11/23/15 02/11/19 Omeprazole [PriLOSEC] 40 mg PO QAM 11/23/15 02/11/19 amLODIPine [Norvasc] 5 mg PO QAM 11/23/15 02/11/19 metFORMIN HCL [Glucophage] 500 mg PO TID 11/23/15 02/11/19 Tamsulosin HCl [Flomax] 0.4 mg PO HS 07/30/18 02/11/19 Multivitamin/Iron/Folic Acid 1 each PO DAILY 02/04/19 02/11/19 [Centrum Complete Multivit Tab] Previous Rx's Medication Instructions Recorded HYDROcodone/APAP 7.5-325MG [[place] 1 - 2 each PO Q6HR PRN #56 tab 02/11/19 7.5] hydrOXYzine pamoate [Vistaril] 25 mg PO Q6HR #40 capsule 02/11/19 Allergies Allergy/AdvReac Type Severity Reaction Status Date / Time azithromycin Allergy Unknown Verified 10/14/21 15:57 Cephalosporins Allergy Rash/Hives. Verified 10/14/21 15:57 ITCHING ezetimibe Allergy Rash/Hives Verified 10/14/21 15:57 Iodinated Contrast Media Allergy Rash/Hives, Verified 10/14/21 15:57 [Iodinated Contrast Media - ITCHING IV Dye] Penicillins Allergy Rash/Hives. Verified 10/14/21 15:57 ITCHING rosuvastatin calcium Allergy Unknown Verified 10/14/21 15:57 [From Crestor] Sulfa (Sulfonamide Allergy Rash/Hives. Verified 10/14/21 15:57 Antibiotics) ITCHING Review of Systems ROS Statement: Those systems with pertinent positive or pertinent negative responses have been documented in the HPI. ROS Other: All systems not noted in ROS Statement are negative. 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 ANGIOPLASTY IN 2007.rt rotator cuff Additional Past Anesthesia/Blood Transfusion Reaction / Comment(s): DIFFICULTY URINATING AFTER ANESTHESIA. Date of Last Stent Placement:: Past Psychological History: No Psychological Hx Reported Smoking Status: Never smoker Past Alcohol Use History: None Reported Past Drug Use History: None Reported - Past Family History Mother Family Medical History: Cancer General Exam Limitations: no limitations General appearance: alert, in no apparent distress Head exam: Present: atraumatic, normocephalic Eye exam: Present: normal appearance, PERRL ENT exam: Present: normal exam Neck exam: Present: normal inspection. Absent: tenderness, meningismus Respiratory exam: Present: respiratory distress, rales, rhonchi (Left lung base), accessory muscle use Cardiovascular Exam: Present: regular rate, normal rhythm GI/Abdominal exam: Present: soft. Absent: distended, tenderness, guarding Extremities exam: Present: pedal edema. Absent: calf tenderness Neurological exam: Present: alert, oriented X3, CN II-XII intact. Absent: motor sensory deficit Psychiatric exam: Present: normal affect, normal mood Skin exam: Present: warm, dry, intact. Absent: cyanosis, diaphoretic Course Vital Signs 10/14/21 10/14/21 10/14/21 15:50 16:07 18:07 Temperature 100.5 F H Pulse Rate 98 82 Respiratory 18 30 H 24 Rate Blood Pressure 152/74 163/83 O2 Sat by Pulse 83 L 100 Oximetry EKG Findings - EKG Comments: EKG Findings:: EKG: Sinus rhythm right bundle branch block left anterior fascicular block, rate of 88, SC interval 187, QRS duration 156, QTC 452, no ST segment elevation, changes noted compared to EKG in July 2018. Medical Decision Making - Medical Decision Making 69 sexual male presenting with cough and dyspnea for the past approximately one week. Patient is hypoxic upon arrival. He has rhonchi and Rales predominantly in the left lung field. He does have pedal edema as well. No central chest pain. Patient did not know he was running a fever. He had been on azithromycin as an outpatient. Chest x-ray does show concern for an atypical pneumonia. He has a leukocytosis. He has flexion and abnormalities including hypokalemia, hypomagnesemia. His troponin and BNP are negative. His coronavirus and influenza testing are negative. D-dimer is mildly elevated and the patient will undergo CT scanning to rule out pulmonary embolism. He requires pretreatment. These results are pending. Case discussed with Dr. Rodney who will admit. - Lab Data Result diagrams: 10/14/21 16:25 10/14/21 16:25 Lab Results 10/14/21 10/14/21 10/14/21 Range/Units 16:09 16:09 16:25 WBC 16.1 H (3.8-10.6) k/uL RBC 4.67 (4.30-5.90) m/uL Hgb 14.2 (13.0-17.5) gm/dL Hct 40.9 (39.0-53.0) % MCV 87.6 (80.0-100.0) fL MCH 30.4 (25.0-35.0) pg MCHC 34.7 (31.0-37.0) g/dL RDW 14.3 (11.5-15.5) % Plt Count 288 (150-450) k/uL MPV 7.7 Neutrophils % 84 % Lymphocytes % 7 % Monocytes % 7 % Eosinophils % 0 % Basophils % 0 % Neutrophils # 13.5 H (1.3-7.7) k/uL Lymphocytes # 1.1 (1.0-4.8) k/uL Monocytes # 1.1 H (0-1.0) k/uL Eosinophils # 0.0 (0-0.7) k/uL Basophils # 0.0 (0-0.2) k/uL Hyperchromasia Slight Poikilocytosis Slight PT (9.0-12.0) sec INR (<1.2) APTT (22.0-30.0) sec D-Dimer (<0.60) mg/L FEU Sodium (137-145) mmol/L Potassium (3.5-5.1) mmol/L Chloride (98-107) mmol/L Carbon Dioxide (22-30) mmol/L Anion Gap mmol/L BUN (9-20) mg/dL Creatinine (0.66-1.25) mg/dL Est GFR (CKD-EPI)AfAm (>60 ml/min/1.73 sqM) Est GFR (CKD-EPI)NonAf (>60 ml/min/1.73 sqM) Glucose (74-99) mg/dL Plasma Lactic Acid Sadi (0.7-2.0) mmol/L Calcium (8.4-10.2) mg/dL Magnesium (1.6-2.3) mg/dL Total Bilirubin (0.2-1.3) mg/dL AST (17-59) U/L ALT (4-49) U/L Alkaline Phosphatase (38-126) U/L Troponin I (0.000-0.034) ng/mL NT-Pro-B Natriuret Pep pg/mL Total Protein (6.3-8.2) g/dL Albumin (3.5-5.0) g/dL Coronavirus (PCR) Not Detected (Not Detectd) Influenza Type A RNA Not Detected (Not Detectd) Influenza Type B (PCR) Not Detected (Not Detectd) 10/14/21 10/14/21 10/14/21 Range/Units 16:25 16:25 16:25 WBC (3.8-10.6) k/uL RBC (4.30-5.90) m/uL Hgb (13.0-17.5) gm/dL Hct (39.0-53.0) % MCV (80.0-100.0) fL MCH (25.0-35.0) pg MCHC (31.0-37.0) g/dL RDW (11.5-15.5) % Plt Count (150-450) k/uL MPV Neutrophils % % Lymphocytes % % Monocytes % % Eosinophils % % Basophils % % Neutrophils # (1.3-7.7) k/uL Lymphocytes # (1.0-4.8) k/uL Monocytes # (0-1.0) k/uL Eosinophils # (0-0.7) k/uL Basophils # (0-0.2) k/uL Hyperchromasia Poikilocytosis PT 11.4 (9.0-12.0) sec INR 1.1 (<1.2) APTT 24.8 (22.0-30.0) sec D-Dimer (<0.60) mg/L FEU Sodium 138 (137-145) mmol/L Potassium 2.4 L* (3.5-5.1) mmol/L Chloride 98 (98-107) mmol/L Carbon Dioxide 30 (22-30) mmol/L Anion Gap 10 mmol/L BUN 17 (9-20) mg/dL Creatinine 0.72 (0.66-1.25) mg/dL Est GFR (CKD-EPI)AfAm >90 (>60 ml/min/1.73 sqM) Est GFR (CKD-EPI)NonAf >90 (>60 ml/min/1.73 sqM) Glucose 196 H (74-99) mg/dL Plasma Lactic Acid Sadi 2.2 H* (0.7-2.0) mmol/L Calcium 8.7 (8.4-10.2) mg/dL Magnesium 1.3 L (1.6-2.3) mg/dL Total Bilirubin 1.5 H (0.2-1.3) mg/dL AST 28 (17-59) U/L ALT 23 (4-49) U/L Alkaline Phosphatase 86 (38-126) U/L Troponin I (0.000-0.034) ng/mL NT-Pro-B Natriuret Pep pg/mL Total Protein 7.1 (6.3-8.2) g/dL Albumin 3.8 (3.5-5.0) g/dL Coronavirus (PCR) (Not Detectd) Influenza Type A RNA (Not Detectd) Influenza Type B (PCR) (Not Detectd) 10/14/21 10/14/21 10/14/21 Range/Units 16:25 16:25 16:25 WBC (3.8-10.6) k/uL RBC (4.30-5.90) m/uL Hgb (13.0-17.5) gm/dL Hct (39.0-53.0) % MCV (80.0-100.0) fL MCH (25.0-35.0) pg MCHC (31.0-37.0) g/dL RDW (11.5-15.5) % Plt Count (150-450) k/uL MPV Neutrophils % % Lymphocytes % % Monocytes % % Eosinophils % % Basophils % % Neutrophils # (1.3-7.7) k/uL Lymphocytes # (1.0-4.8) k/uL Monocytes # (0-1.0) k/uL Eosinophils # (0-0.7) k/uL Basophils # (0-0.2) k/uL Hyperchromasia Poikilocytosis PT (9.0-12.0) sec INR (<1.2) APTT (22.0-30.0) sec D-Dimer 0.65 H (<0.60) mg/L FEU Sodium (137-145) mmol/L Potassium (3.5-5.1) mmol/L Chloride (98-107) mmol/L Carbon Dioxide (22-30) mmol/L Anion Gap mmol/L BUN (9-20) mg/dL Creatinine (0.66-1.25) mg/dL Est GFR (CKD-EPI)AfAm (>60 ml/min/1.73 sqM) Est GFR (CKD-EPI)NonAf (>60 ml/min/1.73 sqM) Glucose (74-99) mg/dL Plasma Lactic Acid Sadi (0.7-2.0) mmol/L Calcium (8.4-10.2) mg/dL Magnesium (1.6-2.3) mg/dL Total Bilirubin (0.2-1.3) mg/dL AST (17-59) U/L ALT (4-49) U/L Alkaline Phosphatase (38-126) U/L Troponin I 0.033 (0.000-0.034) ng/mL NT-Pro-B Natriuret Pep 1070 pg/mL Total Protein (6.3-8.2) g/dL Albumin (3.5-5.0) g/dL Coronavirus (PCR) (Not Detectd) Influenza Type A RNA (Not Detectd) Influenza Type B (PCR) (Not Detectd) Critical Care Time Critical Care Time: Yes Total Critical Care Time: 35 Disposition Clinical Impression: Community acquired pneumonia, Hypoxia, Hypokalemia Disposition: ADMITTED IP TO THIS [facility] Condition: Stable Is patient prescribed a controlled substance at d/c from ED?: No Referrals: Ismael Johnson DO [Primary Care Provider] - 1-2 days Time of Disposition: 18:48
[2021-10-14 16:45] LABS: ALT 23 U/L (4-49); AST 28 U/L (17-59); African American GFR (CKD) >90 (>60 ml/min/1.73 sqM); Albumin 3.8 g/dL (3.5-5.0); Alkaline Phosphatase 86 U/L (38-126); Anion Gap 10 mmol/L; Blood Urea Nitrogen 17 mg/dL (9-20); Calcium 8.7 mg/dL (8.4-10.2); Carbon Dioxide 30 mmol/L (22-30); Chloride 98 mmol/L (98-107); Glucose 196 mg/dL (74-99); Magnesium 1.3 mg/dL (1.6-2.3); Non-African American GFR(CKD) >90 (>60 ml/min/1.73 sqM); Sodium 138 mmol/L (137-145); Total Bilirubin 1.5 mg/dL (0.2-1.3); Total Protein 7.1 g/dL (6.3-8.2)
[2021-10-14 16:47] LABS: Basophils % (A) 0 %; Eosinophils % (A) 0 %; HCT 40.9 % (39.0-53.0); HGB 14.2 gm/dL (13.0-17.5); Hyperchromasia Slight; Lymphocytes # (A) 1.1 k/uL (1.0-4.8); Lymphocytes % (A) 7 %; MCH 30.4 pg (25.0-35.0); MCHC 34.7 g/dL (31.0-37.0); MCV 87.6 fL (80.0-100.0); Mean Platelet Volume 7.7; Monocytes # (A) 1.1 k/uL (0-1.0); Monocytes % (A) 7 %; Neutrophils # (A) 13.5 k/uL (1.3-7.7); Neutrophils % (A) 84 %; Platelet Count 288 k/uL (150-450); Poikilocytosis Slight; RBC 4.67 m/uL (4.30-5.90); RDW 14.3 % (11.5-15.5); WBC 16.1 k/uL (3.8-10.6)
[2021-10-14 16:52] LABS: INR 1.1 (<1.2); Partial Thromboplastin Time 24.8 sec (22.0-30.0); Prothrombin Time 11.4 sec (9.0-12.0)
[2021-10-14 17:10] LABS: Potassium 2.4 mmol/L (3.5-5.1)
[2021-10-14] MEDS ORDERED: POTASSIUM CHLORIDE ER 20 MEQ TAB.ER PO STA (17:11)
[2021-10-14] MEDS: MAGNESIUM SULFATE-D5W PMX 1 GM in DEXTROSE/WATER 1 100ML.BAG IVPB SCH ×2 (17:30→19:44)
--- NOTE | 2021-10-14 17:30 | XR ---
EXAMINATION TYPE: Slightly increasing compared to old exams. DATE OF EXAM: 10/14/2021 COMPARISON: NONE HISTORY: 01/06/2020 TECHNIQUE: Single view FINDINGS: There is coarse interstitial pulmonary edema. There are chest leads. There is poor inspirat ion. Heart size is normal. IMPRESSION: There is no pulmonary interstitial edema compared to old exam. This could be due to heart failure or acute pneumonia.
[2021-10-14] MEDS: POTASSIUM CHLORIDE 10 MEQ in WATER FOR INJECTION 1 100ML.BAG IVPB SCH ×4 (17:31→22:05)
[2021-10-14] MEDS ORDERED: LEVOFLOXACIN 500MG-D5W PMX 500 MG in DEXTROSE/WATER 1 100ML.BAG IVPB STA (17:37)
[2021-10-14] MEDS ORDERED: FAMOTIDINE 20 MG/2 ML VIAL IV STA (17:59)
[2021-10-14] MEDS ORDERED: methylPREDNISolone SOD SUCCI 125 MG/2 ML VIAL IV STA (17:59)
[2021-10-14] MEDS ORDERED: diphenhydrAMINE 50 MG/ML 1 ML VIAL IVP STA (17:59)
[2021-10-14] MEDS ORDERED: NALOXONE 0.4 MG/ML 1 ML VIAL IV PRN (18:46)
[2021-10-14] MEDS ORDERED: ACETAMINOPHEN TAB 325 MG TAB PO PRN (18:46)
[2021-10-14] MEDS: PANTOPRAZOLE 40 MG TABLET PO SCH (19:43)
--- NOTE | 2021-10-14 19:43 | CT ---
EXAMINATION TYPE: CT angio chest DATE OF EXAM: 10/14/2021 COMPARISON: None HISTORY: MARIA ALEJANDRA, positive d-dimer, hx pneumonia CT DLP: 320.5 mGycm Automated exposure control for dose reduction was used. CONTRAST: Performed with IV Contrast, patient injected with 100 mL of Isovue 370. Images obtained from the thoracic inlet to the diaphragm with IV contrast. There are 3-D post process ed images. There is patchy groundglass moderate interstitial infiltrate in both lung boswell. Heart size is dwight l. No pericardial effusion. There are a few paratracheal lymph nodes up to 1.5 cm. There are bilatera l enlarged bronchial lymph nodes up to 1.5 cm. There is no evidence of filling defect in the pulmonar y arteries. Thoracic aorta is intact. No aneurysm or dissection. No pneumothorax. No pleural effusion . The thoracic spine is intact. No compression fracture. Sternum is intact. IMPRESSION: No evidence of pulmonary embolism. Extensive interstitial infiltrates with mediastinal and bronchial adenopathy. This could relate to sarcoidosis.
--- NOTE | 2021-10-14 20:22 | HP ---
HISTORY AND PHYSICAL CHIEF COMPLAINT: Shortness of breath. HISTORY OF PRESENT ILLNESS: This 75-year-old gentleman with a past medical history of multiple medical problems, including CAD, diabetes mellitus, being followed by Dr. Johnson in the outpatient setting, was not feeling well over the past several days. The patient was treated in the outpatient setting for pneumonia with Z-Michael. Patient developed an allergy, increasing shortness of breath, and EMS was called. Pulse ox was found to be 70%. The patient also was found to have severe hypokalemia and hypomagnesemia. Lactic acid was elevated. COVID-19 and influenza were negative. The chest x-ray which was reviewed personally by me showed evidence of bilateral pneumonia. Patient was admitted for further evaluation and treatment. There is no history of any fever, rigors or chills. No history of headache, loss of consciousness, seizures. PAST MEDICAL HISTORY: History of diabetes mellitus, history of hypertension, hyperlipidemia. MEDICATIONS: Home medications are reviewed. They include metformin, Vistaril. Doses are not confirmed. ALLERGIES: ALLERGIES include ZITHROMAX and MULTIPLE ALLERGIES. FAMILY HISTORY: History of cancer. SOCIAL HISTORY: No history of smoking. REVIEW OF SYSTEMS: Fourteen-point review of systems negative except as mentioned earlier. PHYSICAL EXAMINATION: Pulse is 82, blood pressure NTD, respiration 24, temperature 101.5, pulse ox 100% on 100% non-rebreather mask. HEENT: Conjunctivae normal. NECK: No jugular venous distention. CARDIOVASCULAR: S1, S2 muffled. RESPIRATION: Breath sounds diminished at the bases. Bilateral scattered rhonchi and crackles. ABDOMEN: Soft, nontender. LEGS: No edema. No swelling. NERVOUS SYSTEM: No focal deficit. LABS: WBC 16.1, hemoglobin 14.1. Sodium ntd. Potassium 2.4. ASSESSMENT: 1. Bilateral pneumonia with acute hypoxic respiratory failure with failure of outpatient treatment. 2. Severe hypokalemia. 3. Severe hypomagnesemia. 4. Increased white count. 5. Diabetes mellitus, type 2. 6. Hypertension. 7. Hyperlipidemia. RECOMMENDATIONS AND DISCUSSION: In this 75-year-old gentleman who presented with multiple complex medical issues, we will monitor the patient closely, continue the current medications, continue with symptomatic treatment. I will initiate broad-spectrum IV antibiotics. I would also recommend intensive bronchodilators, pulmonary and infectious disease evaluations. The COVID-19 is negative. DVT prophylaxis. I would also recommend a D-dimer, and if the D- dimer is positive, CT angio of the chest also. See orders for further details. Guarded prognosis. Further recommendations to follow. Discussed with the patient's family. ROSEMARY / SHELBYN: [id number] / ANATOLIY
[2021-10-14] MEDS: SODIUM CHLORIDE 0.9% 1,000 ML IV SCH (21:07)
[2021-10-14] MEDS: HEPARIN SODIUM,PORCINE/PF 5,000 UNIT/0.5 ML SYRINGE SQ SCH (22:05)
[2021-10-14] MEDS: BUDESONIDE 1 MG/2 ML NEBU INHALATION SCH (22:22)
[2021-10-14] MEDS: FORMOTEROL FUMARATE 20 MCG/2 ML NEBU INHALATION SCH (22:22)
[2021-10-14] MEDS: IPRATROPIUM-ALBUTEROL 3 ML NEB INHALATION SCH (22:22)
[2021-10-15 07:12] LABS: Basophils % (A) 0 %; Eosinophils % (A) 0 %; HGB 13.5 gm/dL (13.0-17.5); Lymphocytes # (A) 0.5 k/uL (1.0-4.8); Lymphocytes % (A) 4 %; MCH 30.5 pg (25.0-35.0); MCHC 33.6 g/dL (31.0-37.0); MCV 90.7 fL (80.0-100.0); Mean Platelet Volume 8.3; Monocytes # (A) 0.3 k/uL (0-1.0); Monocytes % (A) 2 %; Neutrophils # (A) 10.7 k/uL (1.3-7.7); Neutrophils % (A) 93 %; Platelet Count 229 k/uL (150-450); Poikilocytosis Slight; RBC 4.41 m/uL (4.30-5.90); WBC 11.4 k/uL (3.8-10.6)
[2021-10-15 07:25] LABS: ALT 23 U/L (4-49); AST 26 U/L (17-59); African American GFR (CKD) >90 (>60 ml/min/1.73 sqM); Albumin 3.7 g/dL (3.5-5.0); Alkaline Phosphatase 75 U/L (38-126); Anion Gap 9 mmol/L; Blood Urea Nitrogen 17 mg/dL (9-20); Calcium 8.7 mg/dL (8.4-10.2); Carbon Dioxide 32 mmol/L (22-30); Chloride 100 mmol/L (98-107); Glucose 312 mg/dL (74-99); Non-African American GFR(CKD) 90 (>60 ml/min/1.73 sqM); Potassium 3.2 mmol/L (3.5-5.1); Sodium 141 mmol/L (137-145); Total Bilirubin 1.1 mg/dL (0.2-1.3); Total Protein 6.9 g/dL (6.3-8.2)
[2021-10-15] MEDS ORDERED: SODIUM CHLORIDE 0.9% 1,000 ML BAG ONE (08:00)
[2021-10-15] MEDS ORDERED: IPRATROPIUM-ALBUTEROL 3 ML NEB ONE (08:00)
[2021-10-15] MEDS ORDERED: POTASSIUM CHLORIDE ER 20 MEQ TAB.ER PO ONE ×2 (08:00→18:00)
[2021-10-15] MEDS ORDERED: FORMOTEROL FUMARATE 20 MCG/2 ML NEBU INHALATION ONE (08:00)
[2021-10-15] MEDS ORDERED: BUDESONIDE 1 MG/2 ML NEBU INHALATION ONE (08:00)
[2021-10-15] MEDS ORDERED: HEPARIN SODIUM,PORCINE 5,000 UNIT/ML 1 ML VIAL ONE (08:00)
[2021-10-15] MEDS ORDERED: PANTOPRAZOLE 40 MG TABLET PO ONE (08:00)
[2021-10-15 10:11] LABS: African American GFR (CKD) >90 (>60 ml/min/1.73 sqM); Anion Gap 10 mmol/L; Blood Urea Nitrogen 18 mg/dL (9-20); Calcium 8.3 mg/dL (8.4-10.2); Carbon Dioxide 28 mmol/L (22-30); Chloride 102 mmol/L (98-107); Glucose 323 mg/dL (74-99); Magnesium 1.9 mg/dL (1.6-2.3); Non-African American GFR(CKD) >90 (>60 ml/min/1.73 sqM); Sodium 140 mmol/L (137-145)
[2021-10-15 10:27] LABS: Potassium 2.7 mmol/L (3.5-5.1)
[2021-10-15 10:45] LABS: Glucose,Whole Blood 316 mg/dL (75-99)
[2021-10-15 10:45] LABS: Glucose,Whole Blood 300 mg/dL (75-99)
[2021-10-15 11:04] LABS: Glucose,Whole Blood 288 mg/dL (75-99)
[2021-10-15] MEDS: IPRATROPIUM-ALBUTEROL 3 ML NEB INHALATION SCH ×4 (11:14→20:28)
[2021-10-15] MEDS: FORMOTEROL FUMARATE 20 MCG/2 ML NEBU INHALATION SCH ×2 (11:17→20:28)
[2021-10-15] MEDS: BUDESONIDE 1 MG/2 ML NEBU INHALATION SCH ×2 (11:17→20:28)
[2021-10-15] MEDS ORDERED: Potassium Replacement Protocol 1 EACH MISC MISCELLANE PRN ×2 (12:17→17:56)
[2021-10-15] MEDS ORDERED: FINASTERIDE 5 MG TAB PO PRN (12:18)
[2021-10-15 12:25] LABS: Glucose,Whole Blood 262 mg/dL (75-99)
[2021-10-15] MEDS ORDERED: metFORMIN 500 MG TAB PO SCH ×2 (12:30→17:30)
[2021-10-15] MEDS ORDERED: NON FORMULARY DRUG (Losartan Potassium [Losartan Potassium] 100 MG Tablet) PO SCH (12:30)
[2021-10-15] MEDS ORDERED: hydroCHLOROthiazide 12.5 MG CAP PO SCH (12:30)
--- NOTE | 2021-10-15 12:32 | P.CNPUL ---
History of Present Illness Consult date: 10/15/21 Reason for consult: dyspnea, cough, hypoxemia, pneumonia Chief complaint: Shortness of breath with dry cough for last 10 days History of present illness: Patient is a pleasant 75-year-old male with a remote history of smoking in younger years, patient started having some shortness of breath and dry cough about 10-12 days ago, prescribed with a course of Z-Michael by PMD without any significant improvement in symptoms patient continued to have cough shortness of breath which was progressive in last 2 days also noted increased swelling of the lower extremity decided to come into emergency department. On arrival he was febrile with a temperature of 100.5 and oxygen saturation of 83% room air requiring 10 L high flow oxygen keep saturation over 90%. On specific questioning he denies any dizziness lightheadedness denies any seizure-like activity denies any nausea vomiting denies any fever or chills at home denies any sputum production denies any hemoptysis denies any GI symptoms or urinary symptoms. He does have a history of [id number] diabetes mellitus type 2 with history of coronary artery disease with 2 stents placement in the past. 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 and increased UT interval as well as QRS with borderline QT interval, white cell count is elevated at 16,100, electrolyte imbalance with severe hypokalemia with potassium is 2.4 and sodium 138, lactic acid is mildly elevated at 2.2, magnesium low 1.3 liver functions within normal limit, d-dimer mildly elevated 0.65, BNP is mildly elevated 1070, troponin within normal range of 0.033, blood glucose initially was 196 increased to 322 chest x-ray significant for interstitial edema, computed tomography scan of the chest with IV contrast negative for pulmonary embolism but however diffuse groundglass patchy interstitial infiltrate bilaterally is present borderline mediastinal lymph node with slight enlargement of paratracheal lymph nodes up to 1.5 cm, covid test is negative along with influenza A and B second BNP further elevated with number of 1630. Patient is being admitted from the emergency department on medical floor with cardiology on consult currently patient is on bronchodilators with DuoNeb 4 times a day and continuation of his home medicines along with inhaled corticosteroids, patient has been started on Levaquin with a history of multiple ALLERGIES to medications. Patient denies any similar problem in the past has however pneumonia in the remote past, has been fairly healthy retired from [employer], he has not been vaccinated against Covid but did have a flu vaccination however. Review of Systems All systems: negative Past Medical History Past Medical History: Coronary Artery Disease (CAD), Cancer, Diabetes Mellitus, GERD/Reflux, Hyperlipidemia, Hypertension, Myocardial Infarction (non Q-wave) Additional Past Medical History / Comment(s): MELANOMA Last Myocardial Infarction Date:: 08/02/2006 History of Any Multi-Drug Resistant Organisms: None Reported Past Surgical History: Heart Catheterization, Heart Catheterization With Stent, Hernia Repair Additional Past Surgical History / Comment(s): MELANOMA REMOVED FROM LEFT EAR & UPPER LIP. ANGIOPLASTY IN 2007.rt rotator cuff Additional Past Anesthesia/Blood Transfusion Reaction / Comment(s): DIFFICULTY URINATING AFTER ANESTHESIA. Date of Last Stent Placement:: Past Psychological History: No Psychological Hx Reported Smoking Status: Never smoker Past Alcohol Use History: None Reported Past Drug Use History: None Reported - Past Family History Mother Family Medical History: Cancer Medications and Allergies Home Medications Medication Instructions Recorded Confirmed Type Aspirin 325 mg PO HS 11/23/15 10/14/21 History Atorvastatin [Lipitor] 20 mg PO HS 11/23/15 10/14/21 History Losartan Potassium 100 mg PO DAILY 11/23/15 10/14/21 History Omeprazole [PriLOSEC] 40 mg PO DAILY@1300 11/23/15 10/14/21 History metFORMIN HCL [Glucophage] 1,000 mg PO AC-BRKFST 11/23/15 10/14/21 History Tamsulosin HCl [Flomax] 0.4 mg PO DAILY 07/30/18 10/14/21 History Finasteride [Proscar] 5 mg PO DAILY PRN 10/14/21 10/14/21 History amLODIPine [Norvasc] 5 mg PO HS 10/14/21 10/14/21 History hydroCHLOROthiazide [Hydrodiuril] 12.5 mg PO DAILY 10/14/21 10/14/21 History metFORMIN HCL [Glucophage] 1,500 mg PO AC-SUPPER 10/14/21 10/14/21 History sitaGLIPtin PHOSPHATE [Januvia] 100 mg PO DAILY 10/14/21 10/14/21 History Allergies Allergy/AdvReac Type Severity Reaction Status Date / Time azithromycin Allergy Unknown Verified 10/14/21 19:03 Cephalosporins Allergy Rash/Hives. Verified 10/14/21 19:03 ITCHING ezetimibe Allergy Rash/Hives Verified 10/14/21 19:03 Iodinated Contrast Media Allergy Rash/Hives, Verified 10/14/21 19:03 [Iodinated Contrast Media - ITCHING IV Dye] Penicillins Allergy Rash/Hives. Verified 10/14/21 19:03 ITCHING rosuvastatin calcium Allergy Unknown Verified 10/14/21 19:03 [From Crestor] Sulfa (Sulfonamide Allergy Rash/Hives. Verified 10/14/21 19:03 Antibiotics) ITCHING Physical Exam Vitals: Vital Signs Temp Pulse Resp BP Pulse Ox 10/15/21 11:28 91 10/15/21 11:14 90 10/15/21 08:15 98 10/15/21 08:05 91 10/15/21 08:04 91 10/15/21 07:58 91 10/15/21 03:14 96 10/15/21 02:55 98.4 F 80 20 180/90 98 10/14/21 22:43 92 10/14/21 22:26 80 10/14/21 21:08 99.4 F 78 20 158/81 97 10/14/21 21:03 96 10/14/21 18:49 81 18 159/86 100 10/14/21 18:07 82 24 163/83 100 10/14/21 16:07 30 H 10/14/21 15:50 100.5 F H 98 18 152/74 83 L Intake and Output 10/14/21 10/15/21 10/15/21 22:59 06:59 14:59 Other: Weight 79.379 kg - Constitutional General appearance: average body habitus, cooperative, disheveled, mild distress - EENT Eyes: edentulous, PERRLA ENT: normal oropharynx Ears: bilateral: normal - Neck Neck: normal ROM Carotids: bilateral: upstroke normal Thyroid: bilateral: normal size - Respiratory Respiratory: bilateral: wheezing (Both inspiratory and expiratory) - Cardiovascular Rhythm: regular Heart sounds: normal: S1, S2 - Gastrointestinal General gastrointestinal: decreased bowel sounds, soft - Integumentary Trace edema of the lower extremity Integumentary: decreased turgor - Neurologic Neurologic: CNII-XII intact - Musculoskeletal Musculoskeletal: gait normal, generalized weakness, strength equal bilaterally - Psychiatric Psychiatric: A&O x's 3, appropriate affect, intact judgment & insight Results - Laboratory Findings CBC and BMP: 10/15/21 06:00 10/15/21 09:20 PT/INR, D-dimer PT 11.4 sec (9.0-12.0) 10/14/21 16:25 INR 1.1 (<1.2) 10/14/21 16:25 D-Dimer 0.65 mg/L FEU (<0.60) H 10/14/21 16:25 Abnormal lab findings: Abnormal Labs 10/14/21 10/14/21 10/14/21 16:25 16:25 16:25 WBC 16.1 H Neutrophils # 13.5 H Lymphocytes # Monocytes # 1.1 H D-Dimer Potassium 2.4 L* Carbon Dioxide Glucose 196 H POC Glucose (mg/dL) Plasma Lactic Acid Sadi 2.2 H* Calcium Magnesium 1.3 L Total Bilirubin 1.5 H 10/14/21 10/15/21 10/15/21 16:25 06:00 06:40 WBC 11.4 H Neutrophils # 10.7 H Lymphocytes # 0.5 L Monocytes # D-Dimer 0.65 H Potassium 3.2 L Carbon Dioxide 32 H Glucose 312 H POC Glucose (mg/dL) Plasma Lactic Acid Sadi Calcium Magnesium Total Bilirubin 10/15/21 10/15/21 10/15/21 08:08 09:20 09:30 WBC Neutrophils # Lymphocytes # Monocytes # D-Dimer Potassium 2.7 L* Carbon Dioxide Glucose 323 H POC Glucose (mg/dL) 300 H 316 H Plasma Lactic Acid Sadi Calcium 8.3 L Magnesium Total Bilirubin 10/15/21 11:03 WBC Neutrophils # Lymphocytes # Monocytes # D-Dimer Potassium Carbon Dioxide Glucose POC Glucose (mg/dL) 288 H Plasma Lactic Acid Sadi Calcium Magnesium Total Bilirubin - Diagnostic Findings Chest x-ray: report reviewed, image reviewed CT scan - chest: report reviewed, image reviewed (Finding as noted above) Assessment and Plan Assessment: Acute hypoxic respiratory failure Bilateral interstitial pneumonia versus acute exacerbation of CHF primary or secondary Acute exacerbation of CHF with history of stable systolic function Mediastinal lymphadenopathy along with pulmonary infiltrate likely reactive Severe degree of electrolyte imbalance with hypokalemia and hypomagnesemia History of coronary artery disease Uncontrolled diabetes Plan: Agree with cardiovascular evaluation and obtaining echocardiogram Continue IV Levaquin We will add IV steroids 40 mg IV every 8 hourly Continue bronchodilators and inhaled corticosteroids in the form of nebulizer Currently on 10 L high flow oxygen would recommend to continue it and observe closely Consider gentle diuresis that may help Replace potassium and magnesium as per protocol We'll follow closely further recommendations pending plan of care as per clinical response of the patient Time with Patient: Greater than 30
--- NOTE | 2021-10-15 12:52 | P.PN ---
Subjective Progress Note Date: 10/15/21 This is a 75-year-old gentleman with known CAD with AK,stents, diabetes mellitus, prior nicotine dependence, recently completed antibiotics outpatient and multiple other medical issues presented to the ER with complaints of worsening dyspnea of 3-4 days inhibiting ambulation accompanied by upper and lower extremity edema. Patient reported he noticed the extremity edema after being on Z-Michael. BNP/echo ordered. Objective - Vital Signs Vital signs: Vital Signs Temp 98.4 F 10/15/21 02:55 Pulse 91 10/15/21 11:28 Resp 20 10/15/21 02:55 BP 180/90 10/15/21 02:55 Pulse Ox 96 10/15/21 03:14 Intake & Output 10/14/21 10/15/21 10/15/21 18:59 06:59 18:59 Weight 79.379 kg - Exam GENERAL: This is a -75 year-old ,Pleasant and cooperative, respiratory effort increased HEENT: Head is atraumatic, normocephalic. Pupils are equal, round, and reactive to light. Sclerae anicteric. Conjunctivae are clear. Mucus membranes of the mouth are moist. Neck is supple. RESPIRATORY: Respiratory effort labored , bibasilar crackles, greater on the left, inspiratory and expiratory wheezing CARDIOVASCULAR: Regular rate and rhythm. S1 and S2 noted. No systolic or diastolic murmur auscultated. No JVD noted. No S3 or S4 noted. GASTROINTESTINAL: No distention noted. Abdomen soft and round. Normal active bowel sounds auscultated x 4 quadrants. No pain or tenderness noted upon palpation. INTEGUMENTARY: No cyanosis. No jaundice. No rashes noted. No cellulitis noted. EXTREMITIES: 2+ peripheral pulses. mild peripheral edema. No calf tenderness noted. NEUROLOGIC: Cranial nerves II-XII intact. PSYCHIATRIC: Awake, alert, and oriented X 3. Appropriate affect. Intact ju dgement and insight. - Labs CBC & Chem 7: 10/15/21 06:00 10/15/21 09:20 Labs: Abnormal Lab Results - Last 24 Hours (Table) 10/14/21 10/14/21 10/14/21 Range/Units 16:25 16:25 16:25 WBC 16.1 H (3.8-10.6) k/uL Neutrophils # 13.5 H (1.3-7.7) k/uL Lymphocytes # (1.0-4.8) k/uL Monocytes # 1.1 H (0-1.0) k/uL D-Dimer (<0.60) mg/L FEU Potassium 2.4 L* (3.5-5.1) mmol/L Carbon Dioxide (22-30) mmol/L Glucose 196 H (74-99) mg/dL POC Glucose (mg/dL) (75-99) mg/dL Plasma Lactic Acid Sadi 2.2 H* (0.7-2.0) mmol/L Calcium (8.4-10.2) mg/dL Magnesium 1.3 L (1.6-2.3) mg/dL Total Bilirubin 1.5 H (0.2-1.3) mg/dL 10/14/21 10/15/21 10/15/21 Range/Units 16:25 06:00 06:40 WBC 11.4 H (3.8-10.6) k/uL Neutrophils # 10.7 H (1.3-7.7) k/uL Lymphocytes # 0.5 L (1.0-4.8) k/uL Monocytes # (0-1.0) k/uL D-Dimer 0.65 H (<0.60) mg/L FEU Potassium 3.2 L (3.5-5.1) mmol/L Carbon Dioxide 32 H (22-30) mmol/L Glucose 312 H (74-99) mg/dL POC Glucose (mg/dL) (75-99) mg/dL Plasma Lactic Acid Sadi (0.7-2.0) mmol/L Calcium (8.4-10.2) mg/dL Magnesium (1.6-2.3) mg/dL Total Bilirubin (0.2-1.3) mg/dL 10/15/21 10/15/21 10/15/21 Range/Units 08:08 09:20 09:30 WBC (3.8-10.6) k/uL Neutrophils # (1.3-7.7) k/uL Lymphocytes # (1.0-4.8) k/uL Monocytes # (0-1.0) k/uL D-Dimer (<0.60) mg/L FEU Potassium 2.7 L* (3.5-5.1) mmol/L Carbon Dioxide (22-30) mmol/L Glucose 323 H (74-99) mg/dL POC Glucose (mg/dL) 300 H 316 H (75-99) mg/dL Plasma Lactic Acid Sadi (0.7-2.0) mmol/L Calcium 8.3 L (8.4-10.2) mg/dL Magnesium (1.6-2.3) mg/dL Total Bilirubin (0.2-1.3) mg/dL 10/15/21 10/15/21 Range/Units 11:03 12:23 WBC (3.8-10.6) k/uL Neutrophils # (1.3-7.7) k/uL Lymphocytes # (1.0-4.8) k/uL Monocytes # (0-1.0) k/uL D-Dimer (<0.60) mg/L FEU Potassium (3.5-5.1) mmol/L Carbon Dioxide (22-30) mmol/L Glucose (74-99) mg/dL POC Glucose (mg/dL) 288 H 262 H (75-99) mg/dL Plasma Lactic Acid Sadi (0.7-2.0) mmol/L Calcium (8.4-10.2) mg/dL Magnesium (1.6-2.3) mg/dL Total Bilirubin (0.2-1.3) mg/dL Assessment and Plan Assessment: Acute hypoxic respiratory failure, secondary to bilateral interstitial pneumonia, failure of outpatient treatment, possibly a component of acute systolic CHF. Prior echo in 2019 reported normal LV function, EF 55-60% Mediastinal and bronchial adenopathy reported per CTA, possibly sarcoidosis, possibly reactive CAD with history of AK, stents Diabetes mellitus type 2, hyperglycemic, multifactorial, infection and steroid- induced. A1C ordered. Hypertension Hyperlipidemia Hypokalemia Hypomagnesemia Plan: Continue on current medication regime ,monitoring and symptomatic treatment.maintain nebulized bronchodilators, IV steroids .BMP,BNP,ECHO ordered. Potassium and magnesium replacement protocols ordered. Lantus, sliding scale and pre-meal NovoLog insulin with parameters added to med regimen.close monitoring of Accu-Cheks .A1c ordered. Pulmonary and cardiology consults in place with recommendations pending. The impression and plan of care has been dictated as directed. : I performed a history and examination of this patient, discussed the same with the dictator. I agree with the dictator's note ,documented as a scribe. Any additional findings or plans will be noted.
[2021-10-15] MEDS ORDERED: NON FORMULARY DRUG (Omeprazole 40 MG Capsule.Dr) PO SCH (13:00)
[2021-10-15] MEDS ORDERED: POTASSIUM CHLORIDE ER 20 MEQ TAB.ER PO SCH (13:00)
[2021-10-15] MEDS: HEPARIN SODIUM,PORCINE/PF 5,000 UNIT/0.5 ML SYRINGE SQ SCH ×2 (13:13→21:06)
[2021-10-15] MEDS: PANTOPRAZOLE 40 MG TABLET PO SCH (13:13)
[2021-10-15] MEDS: LEVOFLOXACIN 500MG-D5W PMX 500 MG in DEXTROSE/WATER 1 100ML.BAG IVPB SCH (13:13)
[2021-10-15 13:32] LABS: Glucose,Whole Blood 211 mg/dL (75-99)
[2021-10-15] MEDS: methylPREDNISolone SOD SUCCI 40 MG/ML 1 ML VIAL IV SCH ×2 (13:33→21:06)
[2021-10-15] MEDS: LINAGLIPTIN 5 MG TABLET PO SCH (13:33)
[2021-10-15] MEDS: TAMSULOSIN 0.4 MG CAP.ER.24H PO SCH (13:33)
[2021-10-15] MEDS: INSULIN ASPART (NovoLOG) 100 UNIT/ML VIAL SQ SCH ×4 (13:33→21:30)
[2021-10-15] MEDS: SODIUM CHLORIDE 0.9% 1,000 ML IV SCH ×2 (13:44→21:07)
[2021-10-15 16:46] LABS: Glucose,Whole Blood 244 mg/dL (75-99)
[2021-10-15] MEDS: POTASSIUM CHLORIDE ER 20 MEQ TAB.ER PO SCH ×2 (18:02→18:54)
[2021-10-15] MEDS ORDERED: INSULIN DETEMIR (LEVEMIR) 100 UNIT/ML SYR SQ SCH (21:00)
[2021-10-15] MEDS: ASPIRIN 325 MG TAB PO SCH (21:05)
[2021-10-15] MEDS: ATORVASTATIN 20 MG TAB PO SCH (21:05)
[2021-10-15] MEDS: amLODIPine 5 MG TAB PO SCH (21:06)
[2021-10-15 21:24] LABS: Glucose,Whole Blood 313 mg/dL (75-99)
--- NOTE | 2021-10-16 00:02 | P.CONS ---
History of Present Illness - Reason for Consult Consult date: 10/15/21 Atypical pneumonia Requesting physician: Kaycee Rodney - Chief Complaint Shortness of breath x few days - History of Present Illness Patient is a 75-year-old male with a past medical his significant for coronary artery disease hypertension hyperlipidemia diabetes patient presented to ER yesterday afternoon for evaluation of increasing shortness of breath and cough in this patient symptom has been going on for about a week patient mention he was evaluated by his primary care physician has been treated with a Z-Michael however did not have any improvement patient complaining of increasing shortness of breath also complaining of increasing swelling to lower extremity patient did have a mild cough which is dry in nature been up any sputum denies any nausea no vomiting no abdominal pain or any diarrhea patient on presentation to the hospital did have low-grade fever 100.5 F patient was hypoxic with O2 sats of 83% on room air did have white count of 16,000 with a left shift creatinine was normal liver enzymes are normal influenza and acevedo PCR was negative blood cultures obtained which are currently pending patient did have a chest x-ray heart failure versus acute pneumonia patient did have a CT angiogram of the chest that was negative for PE diffuse extensive interstitial infiltrate along with mediastinal and bronchial adenopathy patient was started on Levaquin because of his allergy infectious disease was consulted for further management of antibiotic therapy Review of Systems Positive point has been mentioned in the HPI rest of the systems are negative Past Medical History Past Medical History: Coronary Artery Disease (CAD), Cancer, Diabetes Mellitus, GERD/Reflux, Hyperlipidemia, Hypertension, Myocardial Infarction (non Q-wave) Additional Past Medical History / Comment(s): MELANOMA Last Myocardial Infarction Date:: 08/02/2006 History of Any Multi-Drug Resistant Organisms: None Reported Past Surgical History: Heart Catheterization, Heart Catheterization With Stent, Hernia Repair Additional Past Surgical History / Comment(s): MELANOMA REMOVED FROM LEFT EAR & UPPER LIP. ANGIOPLASTY IN 2007.rt rotator cuff Additional Past Anesthesia/Blood Transfusion Reaction / Comm: DIFFICULTY URINATING AFTER ANESTHESIA. Date of Last Stent Placement:: Past Psychological History: No Psychological Hx Reported Smoking Status: Never smoker Past Alcohol Use History: None Reported Past Drug Use History: None Reported - Past Family History Mother Family Medical History: Cancer Medications and Allergies Home Medications Medication Instructions Recorded Confirmed Type Aspirin 325 mg PO HS 11/23/15 10/14/21 History Atorvastatin [Lipitor] 20 mg PO HS 11/23/15 10/14/21 History Losartan Potassium 100 mg PO DAILY 11/23/15 10/14/21 History Omeprazole [PriLOSEC] 40 mg PO DAILY@1300 11/23/15 10/14/21 History metFORMIN HCL [Glucophage] 1,000 mg PO AC-BRKFST 11/23/15 10/14/21 History Tamsulosin HCl [Flomax] 0.4 mg PO DAILY 07/30/18 10/14/21 History Finasteride [Proscar] 5 mg PO DAILY PRN 10/14/21 10/14/21 History amLODIPine [Norvasc] 5 mg PO HS 10/14/21 10/14/21 History hydroCHLOROthiazide [Hydrodiuril] 12.5 mg PO DAILY 10/14/21 10/14/21 History metFORMIN HCL [Glucophage] 1,500 mg PO AC-SUPPER 10/14/21 10/14/21 History sitaGLIPtin PHOSPHATE [Januvia] 100 mg PO DAILY 10/14/21 10/14/21 History Allergies Allergy/AdvReac Type Severity Reaction Status Date / Time azithromycin Allergy Unknown Verified 10/14/21 19:03 Cephalosporins Allergy Rash/Hives. Verified 10/14/21 19:03 ITCHING ezetimibe Allergy Rash/Hives Verified 10/14/21 19:03 Iodinated Contrast Media Allergy Rash/Hives, Verified 10/14/21 19:03 [Iodinated Contrast Media - ITCHING IV Dye] Penicillins Allergy Rash/Hives. Verified 10/14/21 19:03 ITCHING rosuvastatin calcium Allergy Unknown Verified 10/14/21 19:03 [From Crestor] Sulfa (Sulfonamide Allergy Rash/Hives. Verified 10/14/21 19:03 Antibiotics) ITCHING Physical Exam Vitals: Vital Signs Temp Pulse Resp BP Pulse Ox 10/15/21 11:28 91 10/15/21 11:14 90 10/15/21 08:15 98 10/15/21 08:05 91 10/15/21 08:04 91 10/15/21 07:58 91 10/15/21 03:14 96 10/15/21 02:55 98.4 F 80 20 180/90 98 10/14/21 22:43 92 10/14/21 22:26 80 10/14/21 21:08 99.4 F 78 20 158/81 97 10/14/21 21:03 96 10/14/21 18:49 81 18 159/86 100 10/14/21 18:07 82 24 163/83 100 10/14/21 16:07 30 H 10/14/21 15:50 100.5 F H 98 18 152/74 83 L Intake and Output 10/14/21 10/15/21 10/15/21 22:59 06:59 14:59 Other: Weight 79.379 kg GENERAL DESCRIPTION: Elderly male lying in bed, no distress. No tachypnea or accessory muscle of respiration use. HEENT: Shows Pallor , no scleral icterus. Oral mucous membrane is dry. No pharyngeal erythema or thrush NECK: Trachea central, no thyromegaly. LUNGS: Unlabored breathing. Coarse crackles bilaterally No wheeze HEART: S1, S2, regular rate and rhythm. No loud murmur ABDOMEN: Soft, no tenderness , guarding or rigidity, no organomegaly EXTREMITIES: One plus edema of feet. SKIN: No rash, no masses palpable. NEUROLOGICAL: The patient is awake, alert, oriented x3, mood and affect normal. Results CBC & Chem 7: 10/15/21 06:00 10/15/21 15:04 Labs: Abnormal Lab Results - Last 24 Hours (Table) 10/14/21 10/14/21 10/14/21 Range/Units 16:25 16:25 16:25 WBC 16.1 H (3.8-10.6) k/uL Neutrophils # 13.5 H (1.3-7.7) k/uL Lymphocytes # (1.0-4.8) k/uL Monocytes # 1.1 H (0-1.0) k/uL D-Dimer (<0.60) mg/L FEU Potassium 2.4 L* (3.5-5.1) mmol/L Carbon Dioxide (22-30) mmol/L Glucose 196 H (74-99) mg/dL POC Glucose (mg/dL) (75-99) mg/dL Plasma Lactic Acid Sadi 2.2 H* (0.7-2.0) mmol/L Calcium (8.4-10.2) mg/dL Magnesium 1.3 L (1.6-2.3) mg/dL Total Bilirubin 1.5 H (0.2-1.3) mg/dL 10/14/21 10/15/21 10/15/21 Range/Units 16:25 06:00 06:40 WBC 11.4 H (3.8-10.6) k/uL Neutrophils # 10.7 H (1.3-7.7) k/uL Lymphocytes # 0.5 L (1.0-4.8) k/uL Monocytes # (0-1.0) k/uL D-Dimer 0.65 H (<0.60) mg/L FEU Potassium 3.2 L (3.5-5.1) mmol/L Carbon Dioxide 32 H (22-30) mmol/L Glucose 312 H (74-99) mg/dL POC Glucose (mg/dL) (75-99) mg/dL Plasma Lactic Acid Sadi (0.7-2.0) mmol/L Calcium (8.4-10.2) mg/dL Magnesium (1.6-2.3) mg/dL Total Bilirubin (0.2-1.3) mg/dL 10/15/21 10/15/21 10/15/21 Range/Units 08:08 09:20 09:30 WBC (3.8-10.6) k/uL Neutrophils # (1.3-7.7) k/uL Lymphocytes # (1.0-4.8) k/uL Monocytes # (0-1.0) k/uL D-Dimer (<0.60) mg/L FEU Potassium 2.7 L* (3.5-5.1) mmol/L Carbon Dioxide (22-30) mmol/L Glucose 323 H (74-99) mg/dL POC Glucose (mg/dL) 300 H 316 H (75-99) mg/dL Plasma Lactic Acid Sadi (0.7-2.0) mmol/L Calcium 8.3 L (8.4-10.2) mg/dL Magnesium (1.6-2.3) mg/dL Total Bilirubin (0.2-1.3) mg/dL 10/15/21 Range/Units 11:03 WBC (3.8-10.6) k/uL Neutrophils # (1.3-7.7) k/uL Lymphocytes # (1.0-4.8) k/uL Monocytes # (0-1.0) k/uL D-Dimer (<0.60) mg/L FEU Potassium (3.5-5.1) mmol/L Carbon Dioxide (22-30) mmol/L Glucose (74-99) mg/dL POC Glucose (mg/dL) 288 H (75-99) mg/dL Plasma Lactic Acid Sadi (0.7-2.0) mmol/L Calcium (8.4-10.2) mg/dL Magnesium (1.6-2.3) mg/dL Total Bilirubin (0.2-1.3) mg/dL Assessment and Plan (1) Community acquired pneumonia Current Visit: Yes Status: Acute Code(s): J18.9 - PNEUMONIA, UNSPECIFIED ORGANISM SNOMED Code(s): 196157170 Plan: 1patient is in the hospital with increasing shortness of breath which is likely multifactorial in this patient who did have a complaint of worsening swelling possible cardiac etiology however the patient did have a fever elevated white count and a cough underlying atypical pneumonia not entirely excluded. 2patient with multiple antibiotic allergies that would limit the number of antibiotics safe to use. 3we will try to obtain a sputum for gram stain and culture check a procalcitonin and urine for urine antigen. 4continue with the Levaquin 500 mg daily We will follow on clinical condition and cultures to further adjust medication if needed Thank you for this consultation will follow this patient along with you Time with Patient: Greater than 30
[2021-10-16 06:57] LABS: Glucose,Whole Blood 229 mg/dL (75-99)
[2021-10-16] MEDS: INSULIN ASPART (NovoLOG) 100 UNIT/ML VIAL SQ SCH ×7 (06:58→20:50)
[2021-10-16] MEDS: PANTOPRAZOLE 40 MG TABLET PO SCH (06:58)
[2021-10-16] MEDS: TAMSULOSIN 0.4 MG CAP.ER.24H PO SCH (09:05)
[2021-10-16] MEDS: LINAGLIPTIN 5 MG TABLET PO SCH (09:05)
[2021-10-16] MEDS: methylPREDNISolone SOD SUCCI 40 MG/ML 1 ML VIAL IV SCH ×2 (09:05→20:49)
[2021-10-16] MEDS: HEPARIN SODIUM,PORCINE/PF 5,000 UNIT/0.5 ML SYRINGE SQ SCH ×2 (09:05→20:51)
[2021-10-16 09:25] LABS: African American GFR (CKD) >90 (>60 ml/min/1.73 sqM); Anion Gap 6 mmol/L; Blood Urea Nitrogen 29 mg/dL (9-20); Calcium 8.5 mg/dL (8.4-10.2); Carbon Dioxide 29 mmol/L (22-30); Chloride 107 mmol/L (98-107); Glucose 238 mg/dL (74-99); Non-African American GFR(CKD) >90 (>60 ml/min/1.73 sqM); Potassium 4.1 mmol/L (3.5-5.1); Sodium 142 mmol/L (137-145)
[2021-10-16] MEDS: IPRATROPIUM-ALBUTEROL 3 ML NEB INHALATION SCH ×4 (09:33→20:10)
[2021-10-16] MEDS: BUDESONIDE 1 MG/2 ML NEBU INHALATION SCH ×2 (09:33→20:10)
[2021-10-16] MEDS: FORMOTEROL FUMARATE 20 MCG/2 ML NEBU INHALATION SCH ×2 (09:33→20:10)
[2021-10-16 09:37] LABS: HCT 41.4 % (39.0-53.0); HGB 13.5 gm/dL (13.0-17.5); MCH 30.3 pg (25.0-35.0); MCHC 32.6 g/dL (31.0-37.0); MCV 92.7 fL (80.0-100.0); Mean Platelet Volume 8.5; Platelet Count 256 k/uL (150-450); Poikilocytosis Slight; RBC 4.46 m/uL (4.30-5.90); RDW 14.4 % (11.5-15.5); WBC 20.5 k/uL (3.8-10.6)
[2021-10-16] MEDS: LEVOFLOXACIN 500MG-D5W PMX 500 MG in DEXTROSE/WATER 1 100ML.BAG IVPB SCH (10:08)
[2021-10-16 11:08] LABS: Glucose,Whole Blood 136 mg/dL (75-99)
[2021-10-16] MEDS: SODIUM CHLORIDE 0.9% 1,000 ML IV SCH (11:57)
[2021-10-16] MEDS: LOSARTAN 50 MG TAB PO SCH (14:35)
--- NOTE | 2021-10-16 16:27 | P.PN ---
Subjective Progress Note Date: 10/16/21 This is a 75-year-old gentleman with known CAD with DE,stents, diabetes mellitus, prior nicotine dependence, recently completed antibiotics outpatient and multiple other medical issues presented to the ER with complaints of worsening dyspnea of 3-4 days inhibiting ambulation accompanied by upper and lower extremity edema. Patient reported he noticed the extremity edema after being on Z-Michael. BNP/echo ordered. 10/16/2021 echo pending, maintained on gentle IV fluid hydration and IV antibiotics of Levaquin. Afebrile, WBC 20.5 ( currently on IV steroids). Oxygen has been weaned down to 3 L high flow nasal cannula, tinea O2 sats in the 90s. Positive diet intake with no nausea vomiting or diarrhea. Blood sugars improving. CRP elevated 4.8, and calcitonin within normal limits 0.06. BUN 29, creatinine 0.7. Potassium 4.1. Denies chest pain, palpitations or increased shortness of breath. Objective - Vital Signs Vital signs: Vital Signs Temp 97.6 F 10/16/21 11:15 Pulse 81 10/16/21 16:05 Resp 16 10/16/21 15:17 BP 167/85 10/16/21 15:17 Pulse Ox 96 10/16/21 15:17 Intake & Output 10/15/21 10/16/21 10/16/21 18:59 06:59 18:59 Output Total 500 Balance -500 Weight 79.379 kg Output: Urine 500 Other: Voiding Method Bedside Commode Bedside Commode # Voids 1 1 # Bowel Movements 1 - Exam GENERAL: This is a -75 year-old ,Pleasant and cooperative, no acute distress HEENT: Head is atraumatic, normocephalic. Pupils are equal, round, and reactive to light. Sclerae anicteric. Conjunctivae are clear. Mucus membranes of the mouth are moist. Neck is supple. RESPIRATORY: Respiratory effort labored , fine bibasilar crackles, greater on the left, decreased expiratory wheezing CARDIOVASCULAR: Regular rate and rhythm. S1 and S2 noted. No systolic or diastolic murmur auscultated. No JVD noted. No S3 or S4 noted. GASTROINTESTINAL: No distention noted. Abdomen soft and round. Normal active bowel sounds auscultated x 4 quadrants. No pain or tenderness noted upon palpation. INTEGUMENTARY: No cyanosis. No jaundice. No rashes noted. No cellulitis noted. EXTREMITIES: 2+ peripheral pulses. Decreased peripheral edema. No calf tenderness noted. NEUROLOGIC: Cranial nerves II-XII intact. PSYCHIATRIC: Awake, alert, and oriented X 3. Appropriate affect. Intact judgement and insight. - Labs CBC & Chem 7: 10/16/21 06:56 10/16/21 06:56 Labs: Abnormal Lab Results - Last 24 Hours (Table) 10/15/21 10/15/21 10/15/21 Range/Units 06:00 16:44 21:23 WBC (3.8-10.6) k/uL BUN (9-20) mg/dL Glucose (74-99) mg/dL POC Glucose (mg/dL) 244 H 313 H (75-99) mg/dL Hemoglobin A1c 6.9 H (0.0-6.0) % C-Reactive Protein (<1.0) mg/dL 10/16/21 10/16/21 10/16/21 Range/Units 06:55 06:56 06:56 WBC (3.8-10.6) k/uL BUN 29 H (9-20) mg/dL Glucose 238 H (74-99) mg/dL POC Glucose (mg/dL) 229 H (75-99) mg/dL Hemoglobin A1c (0.0-6.0) % C-Reactive Protein 4.8 H (<1.0) mg/dL 10/16/21 10/16/21 Range/Units 06:56 11:07 WBC 20.5 H (3.8-10.6) k/uL BUN (9-20) mg/dL Glucose (74-99) mg/dL POC Glucose (mg/dL) 136 H (75-99) mg/dL Hemoglobin A1c (0.0-6.0) % C-Reactive Protein (<1.0) mg/dL Microbiology - Last 24 Hours (Table) 10/14/21 16:25 Blood Culture - Preliminary Blood No Growth after 24 hours 10/14/21 16:25 Blood Culture - Preliminary Blood No Growth after 24 hours Assessment and Plan Assessment: Acute hypoxic respiratory failure, secondary to bilateral interstitial pneumonia, community-acquired, possibly atypical, with failure of outpatient treatment, possibly a component of acute systolic CHF. Prior echo in 2019 reported normal LV function, EF 55-60%, Mediastinal and bronchial adenopathy reported per CTA, possibly sarcoidosis, possibly reactive CAD with history of DE, stents Diabetes mellitus type 2, hyperglycemic, multifactorial, infection and steroid- induced. A1C 6.9 Hypertension Hyperlipidemia Hypokalemia Hypomagnesemia Plan: Continue on current medication regime ,monitoring and symptomatic demetrice atment.maintain nebulized bronchodilators, IV steroids and IV antibiotics.Lantus increased ,close monitoring of Accu-Cheks . echo pending. The impression and plan of care has been dictated as directed. : I performed a history and examination of this patient, discussed the same with the dictator. I agree with the dictator's note ,documented as a scribe. Any additional findings or plans will be noted.
[2021-10-16 16:53] LABS: Glucose,Whole Blood 257 mg/dL (75-99)
--- NOTE | 2021-10-16 17:29 | P.PN ---
Subjective Progress Note Date: 10/16/21 Principal diagnosis: Acute hypoxic respiratory failure Bilateral interstitial pneumonia versus acute exacerbation of CHF primary or secondary Acute exacerbation of CHF with history of stable systolic function Mediastinal lymphadenopathy along with pulmonary infiltrate likely reactive Severe degree of electrolyte imbalance with hypokalemia and hypomagnesemia History of coronary artery disease Uncontrolled diabetes 10/16/2021, patient seen eval reexamined during the rounds labs reviewed medications reviewed care plan discussed, respiratory status slightly better with wheezing cough congestion is improved cough however remains nonproductive, patient has been on 2 L nasal cannula down from 10 L yesterday, patient remains on bronchodilators and IV steroids along with inhaled corticosteroids and Levaquin, blood cultures no growth so far, echocardiogram is pending, WBC count is 20,500, potassium and sodium level improved from 140 to/4.1, BUN/creatinine stable 29/0.7. Prior echo in 2019 revealed ejection fraction of 60% with normal renal functions Patient is a pleasant 75-year-old male with a remote history of smoking in younger years, patient started having some shortness of breath and dry cough about 10-12 days ago, prescribed with a course of Z-Michael by PMD without any significant improvement in symptoms patient continued to have cough shortness of breath which was progressive in last 2 days also noted increased swelling of the lower extremity decided to come into emergency department. On arrival he was febrile with a temperature of 100.5 and oxygen saturation of 83% room air requiring 10 L high flow oxygen keep saturation over 90%. On specific que stioning he denies any dizziness lightheadedness denies any seizure-like activity denies any nausea vomiting denies any fever or chills at home denies any sputum production denies any hemoptysis denies any GI symptoms or urinary symptoms. He does have a history of [id number] diabetes mellitus type 2 with history of coronary artery disease with 2 stents placement in the past. 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 and increased IA interval as well as QRS with borderline QT interval, white cell count is elevated at 16,100, electrolyte imbalance with severe hypokalemia with potassium is 2.4 and sodium 138, lactic acid is mildly elevated at 2.2, magnesium low 1.3 liver functions within normal limit, d-dimer mildly elevated 0.65, BNP is mildly elevated 1070, troponin within normal range of 0.033, blood glucose initially was 196 increased to 322 chest x-ray significant for interstitial edema, computed tomography scan of the chest with IV contrast negative for pulmonary embolism but however diffuse groundglass patchy interstitial infiltrate bilaterally is present borderline mediastinal lymph node with slight enlargement of paratracheal lymph nodes up to 1.5 cm, covid test is negative along with influenza A and B second BNP further elevated with number of 1630. Patient is being admitted from the emergency department on medical floor with cardiology on consult currently patient is on bronchodilators with DuoNeb 4 times a day and continuation of his home medicines along with inhaled corticosteroids, patient has been started on Levaquin with a history of multiple ALLERGIES to medications. Patient denies any similar problem in the past has however pneumonia in the remote past, has been fairly healthy retired from [employer], he has not been vaccinated against Covid but did have a flu vaccination however. Objective - Vital Signs Vital signs: Vital Signs Temp 97.6 F 10/16/21 11:15 Pulse 83 10/16/21 16:19 Resp 16 10/16/21 15:17 BP 167/85 10/16/21 15:17 Pulse Ox 96 10/16/21 15:17 Intake & Output 10/15/21 10/16/21 10/16/21 18:59 06:59 18:59 Output Total 500 Balance -500 Weight 79.379 kg Output: Urine 500 Other: Voiding Method Bedside Commode Bedside Commode # Voids 1 1 # Bowel Movements 1 - Exam - Constitutional General appearance: average body habitus, cooperative, disheveled, mild distress - EENT Eyes: edentulous, PERRLA ENT: normal oropharynx Ears: bilateral: normal - Neck Neck: normal ROM Carotids: bilateral: upstroke normal Thyroid: bilateral: normal size - Respiratory Respiratory: bilateral: wheezing (Both inspiratory and expiratory), however improved compared to yesterday's exam - Cardiovascular Rhythm: regular Heart sounds: normal: S1, S2 - Gastrointestinal General gastrointestinal: decreased bowel sounds, soft - Integumentary Trace edema of the lower extremity Integumentary: decreased turgor - Neurologic Neurologic: CNII-XII intact - Musculoskeletal Musculoskeletal: gait normal, generalized weakness, strength equal bilaterally - Psychiatric Psychiatric: A&O x's 3, appropriate affect, intact judgment & insight - Labs CBC & Chem 7: 10/16/21 06:56 10/16/21 06:56 Labs: Abnormal Lab Results - Last 24 Hours (Table) 10/15/21 10/15/21 10/16/21 Range/Units 06:00 21:23 06:55 WBC (3.8-10.6) k/uL BUN (9-20) mg/dL Glucose (74-99) mg/dL POC Glucose (mg/dL) 313 H 229 H (75-99) mg/dL Hemoglobin A1c 6.9 H (0.0-6.0) % C-Reactive Protein (<1.0) mg/dL 10/16/21 10/16/21 10/16/21 Range/Units 06:56 06:56 06:56 WBC 20.5 H (3.8-10.6) k/uL BUN 29 H (9-20) mg/dL Glucose 238 H (74-99) mg/dL POC Glucose (mg/dL) (75-99) mg/dL Hemoglobin A1c (0.0-6.0) % C-Reactive Protein 4.8 H (<1.0) mg/dL 10/16/21 10/16/21 Range/Units 11:07 16:41 WBC (3.8-10.6) k/uL BUN (9-20) mg/dL Glucose (74-99) mg/dL POC Glucose (mg/dL) 136 H 257 H (75-99) mg/dL Hemoglobin A1c (0.0-6.0) % C-Reactive Protein (<1.0) mg/dL Microbiology - Last 24 Hours (Table) 10/14/21 16:25 Blood Culture - Preliminary Blood No Growth after 24 hours 10/14/21 16:25 Blood Culture - Preliminary Blood No Growth after 24 hours Assessment and Plan Assessment: Acute hypoxic respiratory failure Bilateral interstitial pneumonia versus acute exacerbation of CHF primary or secondary Acute exacerbation of CHF with history of stable systolic function Mediastinal lymphadenopathy along with pulmonary infiltrate likely reactive Severe degree of electrolyte imbalance with hypokalemia and hypomagnesemia History of coronary artery disease Uncontrolled diabetes Plan: Agree with cardiovascular evaluation and obtaining echocardiogram Continue IV Levaquin Continue IV steroids 40 mg IV every 8 hourly Continue bronchodilators and inhaled corticosteroids in the form of nebulizer Currently taper oxygen down as tolerated Monitor and Replace potassium and magnesium as per protocol We'll obtain portable chest x-ray tomorrow morning We'll follow closely further recommendations pending plan of care as per clinical response of the patient Time with Patient: Greater than 30
[2021-10-16 20:38] LABS: Glucose,Whole Blood 158 mg/dL (75-99)
[2021-10-16] MEDS: INSULIN DETEMIR (LEVEMIR) 100 UNIT/ML SYR SQ SCH (20:50)
[2021-10-16] MEDS: amLODIPine 5 MG TAB PO SCH (20:51)
[2021-10-16] MEDS: ASPIRIN 325 MG TAB PO SCH (20:51)
[2021-10-16] MEDS: ATORVASTATIN 20 MG TAB PO SCH (20:51)
[2021-10-17] MEDS: SODIUM CHLORIDE 0.9% 1,000 ML IV SCH ×2 (03:26→17:13)
[2021-10-17] MEDS: BUDESONIDE 1 MG/2 ML NEBU INHALATION SCH ×2 (07:34→21:23)
[2021-10-17] MEDS: FORMOTEROL FUMARATE 20 MCG/2 ML NEBU INHALATION SCH ×2 (07:34→21:22)
[2021-10-17] MEDS: IPRATROPIUM-ALBUTEROL 3 ML NEB INHALATION SCH ×4 (07:34→21:22)
--- NOTE | 2021-10-17 07:40 | CA ---
Transthoracic Echo Report Name: Neto Dugan Age: 75 Gender: M : 1945 Exam Date: 10/16/2021 10:28 Exam Location: [facility] Ht (in): 69 Wt (lb): 175 Ordering Physician: Ismael Johnson DO Attending/Referring Phys: Mold Stacker Kendra Guevara RDCS Procedure CPT: Indications: per physician order Cardiac Hx: Technical Quality: Fair Contrast 1: Total Dose (mL): Contrast 2: Total Dose (mL): MEASUREMENTS (Male / Female) Normal Values 2D ECHO LV Diastolic Diameter PLAX 4.3 cm 4.2 - 5.9 / 3.9 - 5.3 cm LV Systolic Diameter PLAX 2.9 cm IVS Diastolic Thickness 1.2 cm 0.6 - 1.0 / 0.6 - 0.9 cm LVPW Diastolic Thickness 1.2 cm 0.6 - 1.0 / 0.6 - 0.9 cm LV Relative Wall Thickness 0.6 RV Internal Dim ED PLAX 3.2 cm LA Volume 72.1 cm 18 - 58 / 22 - 52 cm M-MODE Aortic Root Diameter MM 3.7 cm LA Systolic Diameter MM 4.1 cm LA Ao Ratio MM 1.1 MV E Point Septal Separation 0.2 cm AV Cusp Separation MM 2.2 cm DOPPLER AV Peak Velocity 140.7 cm/s AV Peak Gradient 7.9 mmHg LVOT Peak Velocity 117.0 cm/s LVOT Peak Gradient 5.5 mmHg MV Area PHT 3.9 cm Mitral E Point Velocity 98.9 cm/s Mitral A Point Velocity 110.4 cm/s Mitral E to A Ratio 0.9 MV Deceleration Time 195.5 ms TR Peak Velocity 296.5 cm/s TR Peak Gradient 35.2 mmHg Right Ventricular Systolic Press 37.5 mmHg FINDINGS Left Ventricle Normal left ventricular systolic function with no obvious regional wall motion abnormalities. Mildly increased left ventricular wall thickness. Left ventricular ejection fraction is estimated at 55-60 %. Right Ventricle Normal right ventricular size and function. Mild pulmonary hypertension. Right Atrium Normal right atrial size. Left Atrium Moderately increased left atrial volume. Mildly increased left atrial area. Mitral Valve Structurally normal mitral valve. Mild mitral regurgitation. Aortic Valve Trileaflet aortic valve. No aortic valve stenosis or regurgitation. Tricuspid Valve Structurally normal tricuspid valve. Mild tricuspid regurgitation. Pulmonic Valve Structurally normal pulmonic valve. Pericardium No pericardial effusion. Aorta Aortic root and proximal ascending aorta not well visualized. CONCLUSIONS Normal LV size and systolic function. Mild mitral and tricuspid insufficiency. No pericardial effusion Previewed by: Dr. Mag Pretty MD (Electronically Signed) Final Date: 17 October 2021 07:38
--- NOTE | 2021-10-17 07:55 | XR ---
EXAMINATION TYPE: XR chest 1V portable DATE OF EXAM: 10/17/2021 COMPARISON: Chest x-ray 10/14/[address] 10/14/2021 HISTORY: Pneumonia TECHNIQUE: Single frontal view of the chest is obtained. FINDINGS: Airspace disease persists, there is prominence of interstitium, lung volumes are low and t he patient is rotated. Cardiac mediastinal silhouette is stable accounting for differences in techniq ue. There are overlying artifacts. No evident pneumothorax or pleural effusion. Right hemidiaphragm m ildly elevated. IMPRESSION: Correlate for pneumonia, there is underlying interstitial lung disease.
[2021-10-17 08:28] LABS: Glucose,Whole Blood 318 mg/dL (75-99)
[2021-10-17] MEDS: HEPARIN SODIUM,PORCINE/PF 5,000 UNIT/0.5 ML SYRINGE SQ SCH ×2 (08:48→23:41)
[2021-10-17] MEDS: INSULIN ASPART (NovoLOG) 100 UNIT/ML VIAL SQ SCH ×7 (08:48→23:42)
[2021-10-17] MEDS: methylPREDNISolone SOD SUCCI 40 MG/ML 1 ML VIAL IV SCH ×2 (08:48→23:39)
[2021-10-17] MEDS: TAMSULOSIN 0.4 MG CAP.ER.24H PO SCH (08:49)
[2021-10-17] MEDS: LOSARTAN 50 MG TAB PO SCH (08:49)
[2021-10-17] MEDS: LEVOFLOXACIN 500 MG TAB PO SCH (08:49)
[2021-10-17] MEDS: LINAGLIPTIN 5 MG TABLET PO SCH (08:49)
[2021-10-17] MEDS: PANTOPRAZOLE 40 MG TABLET PO SCH (08:49)
[2021-10-17 11:15] LABS: Glucose,Whole Blood 156 mg/dL (75-99)
--- NOTE | 2021-10-17 15:44 | P.PN ---
Subjective Progress Note Date: 10/17/21 This is a 75-year-old gentleman with known CAD with KS,stents, diabetes mellitus, prior nicotine dependence, recently completed antibiotics outpatient and multiple other medical issues presented to the ER with complaints of worsening dyspnea of 3-4 days inhibiting ambulation accompanied by upper and lower extremity edema. Patient reported he noticed the extremity edema after being on Z-Michael. BNP/echo ordered. 10/16/2021 echo pending, maintained on gentle IV fluid hydration and IV antibiotics of Levaquin. Afebrile, WBC 20.5 ( currently on IV steroids). Oxygen has been weaned down to 3 L high flow nasal cannula, tinea O2 sats in the 90s. Positive diet intake with no nausea vomiting or diarrhea. Blood sugars improving. CRP elevated 4.8, and calcitonin within normal limits 0.06. BUN 29, creatinine 0.7. Potassium 4.1. Denies chest pain, palpitations or increased shortness of breath. 10/17/2021 maintained on nebulized bronchodilators, IV steroids, Levaquin ,oxygen weaned down to 2 L nasal cannula, maintaining O2 sats in the 90s. Echo reported EF 55-60% with mild mitral and tricuspid insufficiency, no pericardial effusion, aortic root and proximal ascending aorta not well visualized. Chest x-ray reporting persistent airspace disease, interstitium prominence, lung volumes are low. Afebrile, preliminary blood cultures no growth at 48 hours. Sputum culture uncollected. Good diet intake with no nausea vomiting or diarrhea. Objective - Vital Signs Vital signs: Vital Signs Temp 97.9 F 10/17/21 09:11 Pulse 83 10/17/21 09:11 Resp 18 10/17/21 09:11 BP 173/84 10/17/21 09:11 Pulse Ox 95 10/17/21 09:11 Intake & Output 10/16/21 10/17/21 10/17/21 18:59 06:59 18:59 Output Total 500 350 Balance -500 -350 Output: Urine 500 350 Other: Voiding Method Urinal # Voids 2 - Exam GENERAL: This is a -75 year-old ,Pleasant and cooperative, no acute distress HEENT: Head is atraumatic, normocephalic. Pupils are equal, round, and reactive to light. Sclerae anicteric. Conjunctivae are clear. Mucus membranes of the mouth are moist. Neck is supple, no JVD.. RESPIRATORY: Respiratory effort unlabored , minimal fine left basilar crackles. CARDIOVASCULAR: Regular rate and rhythm. S1 and S2 noted. No systolic or diastolic murmur auscultated. No S3 or S4 noted. GASTROINTESTINAL: Soft, nondistended, nontender. No organomegaly, no guarding. Normal active bowel sounds auscultated x 4 quadrants. No pain or tenderness noted upon palpation. INTEGUMENTARY: No cyanosis. No jaundice. No rashes noted. No cellulitis noted. EXTREMITIES: 2+ peripheral pulses. Decreased peripheral edema. No calf tenderness noted. NEUROLOGIC: Cranial nerves II-XII intact. PSYCHIATRIC: Awake, alert, and oriented X 3. Appropriate affect. Intact judgement and insight. - Labs CBC & Chem 7: 10/16/21 06:56 10/16/21 06:56 Labs: Abnormal Lab Results - Last 24 Hours (Table) 10/16/21 10/16/21 10/17/21 Range/Units 16:41 20:36 08:27 POC Glucose (mg/dL) 257 H 158 H 318 H (75-99) mg/dL 10/17/21 Range/Units 11:14 POC Glucose (mg/dL) 156 H (75-99) mg/dL Microbiology - Last 24 Hours (Table) 10/14/21 16:25 Blood Culture - Preliminary Blood No Growth after 48 hours 10/14/21 16:25 Blood Culture - Preliminary Blood No Growth after 48 hours Assessment and Plan Assessment: Acute hypoxic respiratory failure, secondary to bilateral interstitial pneumonia, community-acquired, possibly atypical, with failure of outpatient treatment, possibly a component of acute diastolic CHF. Echo reporting EF 55- 60%. Mediastinal and bronchial adenopathy reported per CTA, possibly sarcoidosis, possibly reactive CAD with history of KS, stents Diabetes mellitus type 2, hyperglycemic, multifactorial, infection and steroid- induced. A1C 6.9 Hypertension Hyperlipidemia Hypokalemia Hypomagnesemia Plan: Continue on current medication regime ,monitoring and symptomatic treatment. Continue on nebulized bronchodilators, IV steroids and IV antibiotics. IV fluids discontinued. Repeat labs in a.m. continue weaning off of O2. Discharge planning in progress tentatively for tomorrow pending final DC recommendations and clearance per pulmonary and ID. The impression and plan of care has been dictated as directed. : I performed a history and examination of this patient, discussed the same with the dictator. I agree with the dictator's note ,documented as a scribe. Any additional findings or plans will be noted.
[2021-10-17 16:24] LABS: Glucose,Whole Blood 213 mg/dL (75-99)
--- NOTE | 2021-10-17 18:15 | P.PN ---
Subjective Progress Note Date: 10/17/21 Principal diagnosis: Acute hypoxic respiratory failure Bilateral interstitial pneumonia versus acute exacerbation of CHF primary or secondary Acute exacerbation of CHF with history of stable systolic function Mediastinal lymphadenopathy along with pulmonary infiltrate likely reactive Severe degree of electrolyte imbalance with hypokalemia and hypomagnesemia History of coronary artery disease Uncontrolled diabetes 10/17/2021, patient seen eval reexamined labs reviewed medications reviewed care plan discussed with the patient and daughter present at bedside, computed to mography scan finding radiographic finding which was performed today reviewed with the patient at length, patient has been doing well in terms of breathing in good spirits, currently patient is on 2 L oxygen x-rays shows no significant changes, patient remains on IV steroids breathing treatments and bronchodilators along with oral antibiotics Echocardiogram results reviewed normal LV size and systolic function mild MR and TR noted no pericardial effusion. Patient's computed tomography scan showed central groundglass opacification patchy in nature and peripheral IPF-like finding with traction bronchiectasis. Patient expressed exposure to asbestos going up, in fact he describes his was exposed to asbestos has been with end-stage lung disease due to pulmonary fibrosis. 10/16/2021, patient seen eval reexamined during the rounds labs reviewed medications reviewed care plan discussed, respiratory status slightly better with wheezing cough congestion is improved cough however remains nonproductive, patient has been on 2 L nasal cannula down from 10 L yesterday, patient remains on bronchodilators and IV steroids along with inhaled corticosteroids and Levaquin, blood cultures no growth so far, echocardiogram is pending, WBC count is 20,500, potassium and sodium level improved from 140 to/4.1, BUN/creatinine stable 29/0.7. Prior echo in 2019 revealed ejection fraction of 60% with normal renal functions Patient is a pleasant 75-year-old male with a remote history of smoking in younger years, patient started having some shortness of breath and dry cough about 10-12 days ago, prescribed with a course of Z-Michael by PMD without any significant improvement in symptoms patient continued to have cough shortness of breath which was progressive in last 2 days also noted increased swelling of the lower extremity decided to come into emergency department. On arrival he was fe brile with a temperature of 100.5 and oxygen saturation of 83% room air requiring 10 L high flow oxygen keep saturation over 90%. On specific questioning he denies any dizziness lightheadedness denies any seizure-like activity denies any nausea vomiting denies any fever or chills at home denies any sputum production denies any hemoptysis denies any GI symptoms or urinary symptoms. He does have a history of [id number] diabetes mellitus type 2 with history of coronary artery disease with 2 stents placement in the past. 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 and increased KS interval as well as QRS with borderline QT interval, white cell count is elevated at 16,100, electrolyte imbalance with severe hypokalemia with potassium is 2.4 and sodium 138, lactic acid is mildly elevated at 2.2, magnesium low 1.3 liver functions within normal limit, d-dimer mildly elevated 0.65, BNP is mildly elevated 1070, troponin within normal range of 0.033, blood glucose initially was 196 increased to 322 chest x-ray significant for interstitial edema, computed tomography scan of the chest with IV contrast negative for pulmonary embolism but however diffuse groundglass patchy interstitial infiltrate bilaterally is present borderline mediastinal lymph node with slight enlargement of paratracheal lymph nodes up to 1.5 cm, covid test is negative along with influenza A and B second BNP further elevated with number of 1630. Patient is being admitted from the emergency department on medical floor with cardiology on consult currently patient is on bronchodilators with DuoNeb 4 times a day and continuation of his home medicines along with inhaled corticosteroids, patient has been started on Levaquin with a history of multiple ALLERGIES to medications. Patient denies any similar problem in the past has however pneumonia in the remote past, has been fairly healthy retired from [employer], he has not been vac cinated against Covid but did have a flu vaccination however. Objective - Vital Signs Vital signs: Vital Signs Temp 97.9 F 10/17/21 14:00 Pulse 84 10/17/21 16:05 Resp 18 10/17/21 09:11 BP 164/77 10/17/21 14:00 Pulse Ox 95 10/17/21 14:00 Intake & Output 10/16/21 10/17/21 10/17/21 18:59 06:59 18:59 Output Total 500 350 Balance -500 -350 Output: Urine 500 350 Other: Voiding Method Urinal # Voids 5 - Exam - Constitutional General appearance: average body habitus, cooperative, disheveled, mild distress - EENT Eyes: edentulous, PERRLA ENT: normal oropharynx Ears: bilateral: normal - Neck Neck: normal ROM Carotids: bilateral: upstroke normal Thyroid: bilateral: normal size - Respiratory Respiratory: bilateral: wheezing (Both inspiratory and expiratory), however improved compared to yesterday's exam - Cardiovascular Rhythm: regular Heart sounds: normal: S1, S2 - Gastrointestinal General gastrointestinal: decreased bowel sounds, soft - Integumentary Trace edema of the lower extremity Integumentary: decreased turgor - Neurologic Neurologic: CNII-XII intact - Musculoskeletal Musculoskeletal: gait normal, generalized weakness, strength equal bilaterally - Psychiatric Psychiatric: A&O x's 3, appropriate affect, intact judgment & insight - Labs CBC & Chem 7: 10/16/21 06:56 10/16/21 06:56 Labs: Abnormal Lab Results - Last 24 Hours (Table) 10/16/21 10/17/21 10/17/21 Range/Units 20:36 08:27 11:14 POC Glucose (mg/dL) 158 H 318 H 156 H (75-99) mg/dL 10/17/21 Range/Units 16:22 POC Glucose (mg/dL) 213 H (75-99) mg/dL Microbiology - Last 24 Hours (Table) 10/14/21 16:25 Blood Culture - Preliminary Blood No Growth after 48 hours 10/14/21 16:25 Blood Culture - Preliminary Blood No Growth after 48 hours Assessment and Plan Assessment: Acute hypoxic respiratory failure Bilateral interstitial pneumonia acute exacerbation of CHF primary or secondary appears to be less likely given normal echocardiogram with mild MR and TR Mediastinal lymphadenopathy along with pulmonary infiltrate likely reactive Severe degree of electrolyte imbalance with hypokalemia and hypomagnesemia History of coronary artery disease Uncontrolled diabetes Plan: Reviewed echocardiogram findings Continue oral Levaquin Continue IV steroids 40 mg IV every 8 hourly, however at the time of discharge p atient can be discharged on oral prednisone 40 mg daily for 5 days followed by 20 mg daily for another 5 days Continue bronchodilators and inhaled corticosteroids in the form of nebulizer Currently taper oxygen down as tolerated Reviewed chest x-ray finding with the patient along with computed tomography scan finding Patient needs evaluation as outpatient as well as PFT and radiographic study Options discussed with patient about aggressive approach of lung biopsy currently patient is not interested in pursuing it we'll defer it for later discussion We'll follow closely further recommendations pending plan of care as per clinical response of the patient Time with Patient: Greater than 30
--- NOTE | 2021-10-17 21:32 | P.PN ---
Subjective Progress Note Date: 10/16/21 Principal diagnosis: Pneumonia Patient is a 75 year old male with past medical history of fever hypertension Diabetes mellitus on it disease presented to hospital with sh ortness of breath and cough he did have a low-grade fever on admission and CT angiogram of the chest did shows extensive interstitial infiltrate along the mediastinal area concerning for atypical pneumonia. On today's evaluation that is 10/16/2021, patient denies having any fever or any chills, patient is breathing slightly comfortable history, denies any chest pain, cough is decreased intensity and remains to be dry in nature no nausea no vomiting no abdominal pain no diarrhea Objective - Vital Signs Vital signs: Vital Signs Temp 97.6 F 10/16/21 11:15 Pulse 78 10/16/21 15:17 Resp 16 10/16/21 15:17 BP 167/85 10/16/21 15:17 Pulse Ox 96 10/16/21 15:17 Intake & Output 10/15/21 10/16/21 10/16/21 18:59 06:59 18:59 Output Total 500 Balance -500 Weight 79.379 kg Output: Urine 500 Other: Voiding Method Bedside Commode Bedside Commode # Voids 1 1 # Bowel Movements 1 - Exam GENERAL DESCRIPTION: An elderly male lying in bed in no distress RESPIRATORY SYSTEM: Unlabored breathing , coarse breath sounds at bases HEART: S1 S2 regular rate and rhythm , ABDOMEN: Soft , no tenderness EXTREMITIES: No edema feet - Labs CBC & Chem 7: 10/16/21 06:56 10/16/21 06:56 Labs: Abnormal Lab Results - Last 24 Hours (Table) 10/15/21 10/15/21 10/15/21 Range/Units 06:00 16:44 21:23 WBC (3.8-10.6) k/uL BUN (9-20) mg/dL Glucose (74-99) mg/dL POC Glucose (mg/dL) 244 H 313 H (75-99) mg/dL Hemoglobin A1c 6.9 H (0.0-6.0) % C-Reactive Protein (<1.0) mg/dL 10/16/21 10/16/21 10/16/21 Range/Units 06:55 06:56 06:56 WBC (3.8-10.6) k/uL BUN 29 H (9-20) mg/dL Glucose 238 H (74-99) mg/dL POC Glucose (mg/dL) 229 H (75-99) mg/dL Hemoglobin A1c (0.0-6.0) % C-Reactive Protein 4.8 H (<1.0) mg/dL 10/16/21 10/16/21 Range/Units 06:56 11:07 WBC 20.5 H (3.8-10.6) k/uL BUN (9-20) mg/dL Glucose (74-99) mg/dL POC Glucose (mg/dL) 136 H (75-99) mg/dL Hemoglobin A1c (0.0-6.0) % C-Reactive Protein (<1.0) mg/dL Microbiology - Last 24 Hours (Table) 10/14/21 16:25 Blood Culture - Preliminary Blood No Growth after 24 hours 10/14/21 16:25 Blood Culture - Preliminary Blood No Growth after 24 hours Assessment and Plan (1) Community acquired pneumonia Current Visit: Yes Status: Acute Code(s): J18.9 - PNEUMONIA, UNSPECIFIED ORGANISM SNOMED Code(s): 097330254 Plan: 1patient is in the hospital with increasing shortness of breath which is likely multifactorial in this patient who did have a complaint of worsening swelling possible cardiac etiology however the patient did have a fever elevated white count and a cough underlying atypical pneumonia not entirely excluded. 2patient with multiple antibiotic allergies that would limit the number of antibiotics safe to use. 3sputum could not be collected so for a urine for Legionella antigen is negative. 4patient to continue with the Levaquin 500 mg daily and monitor clinical course closely Time with Patient: Less than 30
--- NOTE | 2021-10-17 21:34 | P.PN ---
Subjective Progress Note Date: 10/17/21 Principal diagnosis: Pneumonia Patient is a 75 year old male with past medical history of fever hypertension Diabetes mellitus on it disease presented to hospital with sh ortness of breath and cough he did have a low-grade fever on admission and CT angiogram of the chest did shows extensive interstitial infiltrate along the mediastinal area concerning for atypical pneumonia. On today's evaluation that is 10/17/2021, patient remains to be afebrile, patient is breathing comfortably on 2 L nasal cannula, the patient denies any chest pain, cough is decreased intensity and was able to cough up some sputum samples for culture, the patient denies any abdominal pain no diarrhea Objective - Vital Signs Vital signs: Vital Signs Temp 97.9 F 10/17/21 09:11 Pulse 83 10/17/21 09:11 Resp 18 10/17/21 09:11 BP 173/84 10/17/21 09:11 Pulse Ox 95 10/17/21 09:11 Intake & Output 10/16/21 10/17/21 10/17/21 18:59 06:59 18:59 Output Total 500 350 Balance -500 -350 Output: Urine 500 350 Other: Voiding Method Urinal # Voids 2 - Exam GENERAL DESCRIPTION: An elderly male lying in bed in no distress RESPIRATORY SYSTEM: Unlabored breathing , decreased intensity breath sounds, no wheeze HEART: S1 S2 regular rate and rhythm , ABDOMEN: Soft , no tenderness EXTREMITIES: No edema feet - Labs CBC & Chem 7: 10/16/21 06:56 10/16/21 06:56 Labs: Abnormal Lab Results - Last 24 Hours (Table) 10/16/21 10/16/21 10/17/21 Range/Units 16:41 20:36 08:27 POC Glucose (mg/dL) 257 H 158 H 318 H (75-99) mg/dL 10/17/21 Range/Units 11:14 POC Glucose (mg/dL) 156 H (75-99) mg/dL Microbiology - Last 24 Hours (Table) 10/14/21 16:25 Blood Culture - Preliminary Blood No Growth after 48 hours 10/14/21 16:25 Blood Culture - Preliminary Blood No Growth after 48 hours Assessment and Plan (1) Community acquired pneumonia Current Visit: Yes Status: Acute Code(s): J18.9 - PNEUMONIA, UNSPECIFIED ORGANISM SNOMED Code(s): 903815642 Plan: 1patient is in the hospital with increasing shortness of breath which is likely multifactorial in this patient who did have a complaint of worsening swelling possible cardiac etiology however the patient did have a fever elevated white count and a cough underlying atypical pneumonia not entirely excluded. 2patient with multiple antibiotic allergies that would limit the number of ant ibiotics safe to use. 3sputum sample was collected today and cultures will follow up, patient urine for Legionella antigen is negative. 4patient seemed to have clinically responded and will continue with the Levaquin 500 mg daily and monitor clinical course closely Time with Patient: Less than 30
[2021-10-17 21:53] LABS: Glucose,Whole Blood 191 mg/dL (75-99)
[2021-10-17] MEDS: ASPIRIN 325 MG TAB PO SCH (23:39)
[2021-10-17] MEDS: amLODIPine 5 MG TAB PO SCH (23:39)
[2021-10-17] MEDS: ATORVASTATIN 20 MG TAB PO SCH (23:39)
[2021-10-17] MEDS: INSULIN DETEMIR (LEVEMIR) 100 UNIT/ML SYR SQ SCH (23:40)
[2021-10-18 08:04] LABS: Glucose,Whole Blood 174 mg/dL (75-99)
[2021-10-18] MEDS: FORMOTEROL FUMARATE 20 MCG/2 ML NEBU INHALATION SCH (08:35)
[2021-10-18] MEDS: IPRATROPIUM-ALBUTEROL 3 ML NEB INHALATION SCH ×3 (08:35→15:32)
[2021-10-18] MEDS: BUDESONIDE 1 MG/2 ML NEBU INHALATION SCH (08:35)
[2021-10-18 09:05] VITALS: BP 155/85; RESP 16; TEMP 97.9
[2021-10-18] MEDS: HEPARIN SODIUM,PORCINE/PF 5,000 UNIT/0.5 ML SYRINGE SQ SCH (09:38)
[2021-10-18] MEDS: INSULIN ASPART (NovoLOG) 100 UNIT/ML VIAL SQ SCH ×4 (09:38→12:01)
[2021-10-18] MEDS: LINAGLIPTIN 5 MG TABLET PO SCH (09:39)
[2021-10-18] MEDS: LEVOFLOXACIN 500 MG TAB PO SCH (09:39)
[2021-10-18] MEDS: LOSARTAN 50 MG TAB PO SCH (09:39)
[2021-10-18] MEDS: PANTOPRAZOLE 40 MG TABLET PO SCH (09:39)
[2021-10-18] MEDS: TAMSULOSIN 0.4 MG CAP.ER.24H PO SCH (09:39)
[2021-10-18] MEDS: methylPREDNISolone SOD SUCCI 40 MG/ML 1 ML VIAL IV SCH (09:40)
[2021-10-18 10:09] LABS: Basophils # (A) 0.02 X 10*3/uL (0.00-0.10); Basophils % (A) 0.1 %; Eosinophils # (A) 0 X 10*3/uL (0.04-0.35); Eosinophils % (A) 0 %; HCT 39.8 % (39.6-50.0); Immature Grans, Automated 0.8 %; Lymphocytes # (A) 0.67 X 10*3/uL (0.90-5.00); Lymphocytes % (A) 4.6 %; MCH 29.4 pg (27.0-32.0); MCHC 32.7 g/dL (32.0-37.0); Mean Platelet Volume 11.1 fL (9.5-12.2); Monocytes # (A) 0.85 X 10*3/uL (0.20-1.00); Monocytes % (A) 5.9 %; NRBC Per 100 WBC 0 /100 WBCS (0.0-0.0); Neutrophils # (A) 12.84 X 10*3/uL (1.80-7.70); Neutrophils % (A) 88.6 %; Platelet Count 255 X 10*3/uL (140-440); RBC 4.42 X 10*6/uL (4.40-5.60); RDW 14.3 % (11.5-14.5)
[2021-10-18 10:23] LABS: African American GFR (CKD) 100.6 (60.0-200.0); Anion Gap 8.8 mmol/L (10.00-18.00); BUN/Creat Ratio 32.25 Ratio (12.00-20.00); Blood Urea Nitrogen 25.8 mg/dL (9.0-27.0); Calcium 8.5 mg/dL (8.7-10.3); Carbon Dioxide 27.2 mmol/L (20.0-27.5); Non-African American GFR(CKD) 86.8 (60.0-200.0); Potassium 3.9 mmol/L (3.5-5.5)
[2021-10-18 11:44] LABS: Glucose,Whole Blood 122 mg/dL (75-99)
--- NOTE | 2021-10-18 14:20 | P.DS ---
Providers Date of admission: 10/14/21 18:46 Expected date of discharge: 10/18/21 Attending physician: Ismael Johnson Consults: 10/14/21 18:32 Consult Physician Routine Consulting Provider: Srinivas Ortega Consult Reason/Comments: pneumonia Do you want consulting provider notified?: Yes 10/14/21 18:33 Consult Physician Routine Consulting Provider: Jem Martin Consult Reason/Comments: atypical pneumonia?? Do you want consulting provider notified?: Yes Primary care physician: Ismael Johnson Hospital Course: Final Diagnoses: Acute hypoxic respiratory failure, secondary to bilateral interstitial pneumonia, community-acquired, possibly atypical, with failure of outpatient treatment, possibly a component of acute diastolic CHF. Echo reporting EF 55- 60%. Mediastinal and bronchial adenopathy reported per CTA, possibly sarcoidosis, possibly reactive CAD with history of VA, stents Diabetes mellitus type 2, hyperglycemic, multifactorial, infection and steroid- induced. A1C 6.9 Hypertension Hyperlipidemia Hypokalemia Hypomagnesemia Hospital course:This is a 75-year-old gentleman with known CAD with VA,stents, diabetes mellitus, prior nicotine dependence, recently completed antibiotics outpatient and multiple other medical issues presented to the ER with complaints of worsening dyspnea of 3-4 days inhibiting ambulation accompanied by upper and lower extremity edema. Patient reported he noticed the extremity edema after being on Z-Michael. BNP/echo ordered. 10/16/2021 echo pending, maintained on gentle IV fluid hydration and IV antibiotics of Levaquin. Afebrile, WBC 20.5 ( currently on IV steroids). Oxygen has been weaned down to 3 L high flow nasal cannula, tinea O2 sats in the 90s. Positive diet intake with no nausea vomiting or diarrhea. Blood sugars improvi ng. CRP elevated 4.8, and calcitonin within normal limits 0.06. BUN 29, creatinine 0.7. Potassium 4.1. Denies chest pain, palpitations or increased shortness of breath. 10/17/2021 maintained on nebulized bronchodilators, IV steroids, Levaquin ,oxygen weaned down to 2 L nasal cannula, maintaining O2 sats in the 90s. Echo reported EF 55-60% with mild mitral and tricuspid insufficiency, no pericardial effusion, aortic root and proximal ascending aorta not well visualized. Chest x-ray reporting persistent airspace disease, interstitium prominence, lung volumes are low. Afebrile, preliminary blood cultures no growth at 48 hours. Sputum culture uncollected. Good diet intake with no nausea vomiting or diarrhea. Significant clinical improvement. Maintaining O2 sats in the high 90s to 100% on 2 L nasal cannula at rest. O2 sat on room air after ambulation 84%, will require O2 at discharge-currently being arranged by case management. Denies chest pain, palpitations or increased shortness of breath. Denies lightheadedness, dizziness or focal deficits. Patient will be discharged home today pending final DC recommendations/antibiotics and clearance per infectious disease and pulmonary. The impression and plan of care has been dictated as directed. : I performed a history and examination of this patient, discussed the same with the dictator. I agree with the dictator's note ,documented as a scribe. Any additional findings or plans will be noted. Patient Condition at Discharge: Stable Plan - Discharge Summary Discharge Rx Participant: No New Discharge Prescriptions: New Pantoprazole [Protonix] 40 mg PO AC-BRKFST #30 tab predniSONE 10 mg PO DIRECTED #30 tab Continue metFORMIN HCL [Glucophage] 1,000 mg PO AC-BRKFST Omeprazole [PriLOSEC] 40 mg PO DAILY@1300 Losartan Potassium 100 mg PO DAILY Atorvastatin [Lipitor] 20 mg PO HS Aspirin 325 mg PO HS Tamsulosin HCl [Flomax] 0.4 mg PO DAILY metFORMIN HCL [Glucophage] 1,500 mg PO AC-SUPPER amLODIPine [Norvasc] 5 mg PO HS Finasteride [Proscar] 5 mg PO DAILY PRN PRN Reason: PROSTATE sitaGLIPtin PHOSPHATE [Januvia] 100 mg PO DAILY hydroCHLOROthiazide [Hydrodiuril] 12.5 mg PO DAILY Discharge Medication List Aspirin 325 mg PO HS 11/23/15 [History] Atorvastatin [Lipitor] 20 mg PO HS 11/23/15 [History] Losartan Potassium 100 mg PO DAILY 11/23/15 [History] Omeprazole [PriLOSEC] 40 mg PO DAILY@1300 11/23/15 [History] metFORMIN HCL [Glucophage] 1,000 mg PO AC-BRKFST 11/23/15 [History] Tamsulosin HCl [Flomax] 0.4 mg PO DAILY 07/30/18 [History] Finasteride [Proscar] 5 mg PO DAILY PRN 10/14/21 [History] amLODIPine [Norvasc] 5 mg PO HS 10/14/21 [History] hydroCHLOROthiazide [Hydrodiuril] 12.5 mg PO DAILY 10/14/21 [History] metFORMIN HCL [Glucophage] 1,500 mg PO AC-SUPPER 10/14/21 [History] sitaGLIPtin PHOSPHATE [Januvia] 100 mg PO DAILY 10/14/21 [History] Pantoprazole [Protonix] 40 mg PO AC-BRKFST #30 tab 10/18/21 [Rx] predniSONE 10 mg PO DIRECTED #30 tab 10/18/21 [Rx] Follow up Appointment(s)/Referral(s): Ismael Johnson DO [Primary Care Provider] - 10/24/21 10:10 am [facility] [NON-STAFF] - As Needed (oxygen) Zoran Del Real MD [STAFF PHYSICIAN] - 1 Week Activity/Diet/Wound Care/Special Instructions: Sputum culture pending
--- NOTE | 2021-10-18 14:45 | P.PN ---
Subjective Progress Note Date: 10/18/21 Principal diagnosis: Acute hypoxic respiratory failure Bilateral interstitial pneumonia versus acute exacerbation of CHF primary or secondary Acute exacerbation of CHF with history of stable systolic function Mediastinal lymphadenopathy along with pulmonary infiltrate likely reactive Severe degree of electrolyte imbalance with hypokalemia and hypomagnesemia History of coronary artery disease Uncontrolled diabetes 10/18/2021, patient seen eval examined during the rounds patient desaturated on room air requiring supplemental oxygen at home, patient is being discharged on 2 L oxygen I have discussed with patient as well as grandson present at bedside at length about the prognosis therapeutic interventions diagnostic tests and outpatient evaluation at length. Patient has pulmonary fibrosis and interstitial lung disease and hypoxic respiratory failure on outpatient setting likely will undergo pulmonary function testing hypersensitivity pneumonitis panel and possibly bronchoscopy. In the meantime patient is being treated with antibiotics oral prednisone and supplemental oxygen follow clinical course closely 10/17/2021, patient seen eval reexamined labs reviewed medications reviewed care plan discussed with the patient and daughter present at bedside, computed tomography scan finding radiographic finding which was performed today reviewed with the patient at length, patient has been doing well in terms of breathing in good spirits, currently patient is on 2 L oxygen x-rays shows no significant changes, patient remains on IV steroids breathing treatments and bronchodilators along with oral antibiotics Echocardiogram results reviewed normal LV size and systolic function mild MR and TR noted no pericardial effusion. Patient's computed tomography scan showed central groundglass opacification patchy in nature and peripheral IPF-like finding with traction bronchiectasis. Patient expressed exposure to asbestos going up, in fact he describes his was exposed to asbestos has been with end-stage lung disease due to pulmonary fibrosis. 10/16/2021, patient seen eval reexamined during the rounds labs reviewed medications reviewed care plan discussed, respiratory status slightly better with wheezing cough congestion is improved cough however remains nonproductive, patient has been on 2 L nasal cannula down from 10 L yesterday, patient remains on bronchodilators and IV steroids along with inhaled corticosteroids and Levaquin, blood cultures no growth so far, echocardiogram is pending, WBC count is 20,500, potassium and sodium level improved from 140 to/4.1, BUN/creatinine stable 29/0.7. Prior echo in 2019 revealed ejection fraction of 60% with normal renal functions Patient is a pleasant 75-year-old male with a remote history of smoking in younger years, patient started having some shortness of breath and dry cough about 10-12 days ago, prescribed with a course of Z-Michael by PMD without any significant improvement in symptoms patient continued to have cough shortness of breath which was progressive in last 2 days also noted increased swelling of the lower extremity decided to come into emergency department. On arrival he was febrile with a temperature of 100.5 and oxygen saturation of 83% room air requiring 10 L high flow oxygen keep saturation over 90%. On specific questioning he denies any dizziness lightheadedness denies any seizure-like activity denies any nausea vomiting denies any fever or chills at home denies any sputum production denies any hemoptysis denies any GI symptoms or urinary symptoms. He does have a history of [id number] diabetes mellitus type 2 with history of coronary artery disease with 2 stents placement in the past. 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 and increased AR interval as well as QRS with borderline QT interval, white cell count is elevated at 16,100, electrolyte imbalance with severe hypokalemia with potassium is 2.4 and sodium 138, lactic acid is mildly elevated at 2.2, magnesium low 1.3 liver functions within normal limit, d-dimer mildly elevated 0.65, BNP is mildly elevated 1070, troponin within normal range of 0.033, blood glucose initially was 196 increased to 322 chest x-ray significant for interstitial edema, computed tomography scan of the chest with IV contrast negative for pulmonary embolism but however diffuse groundglass patchy interstitial infiltrate bilaterally is present borderline mediastinal lymph node with slight enlargement of paratracheal lymph nodes up to 1.5 cm, covid test is negative along with influenza A and B second BNP further elevated with number of 1630. Patient is being admitted from the emergency department on medical floor with cardiology on consult currently patient is on bronchodilators with DuoNeb 4 times a day and continuation of his home medicines along with inhaled corticosteroids, patient has been started on Levaquin with a history of multiple ALLERGIES to medications. Patient denies any similar problem in the past has however pneumonia in the remote past, has been fairly healthy retired from [employer], he has not been vaccinated against Covid but did have a flu vaccination however. Objective - Vital Signs Vital signs: Vital Signs Temp 97.9 F 10/18/21 08:00 Pulse 74 10/18/21 12:04 Resp 16 10/18/21 08:00 BP 155/85 10/18/21 08:00 Pulse Ox 95 10/18/21 10:57 Intake & Output 10/17/21 10/18/21 10/18/21 18:59 06:59 18:59 Intake Total 740 Balance 740 Intake: Oral 740 Other: # Voids 5 - Exam - Constitutional General appearance: average body habitus, cooperative, disheveled, mild distress - EENT Eyes: edentulous, PERRLA ENT: normal oropharynx Ears: bilateral: normal - Neck Neck: normal ROM Carotids: bilateral: upstroke normal Thyroid: bilateral: normal size - Respiratory Respiratory: bilateral: wheezing (Both inspiratory and expiratory), however improved compared to yesterday's exam - Cardiovascular Rhythm: regular Heart sounds: normal: S1, S2 - Gastrointestinal General gastrointestinal: decreased bowel sounds, soft - Integumentary Trace edema of the lower extremity Integumentary: decreased turgor - Neurologic Neurologic: CNII-XII intact - Musculoskeletal Musculoskeletal: gait normal, generalized weakness, strength equal bilaterally - Psychiatric Psychiatric: A&O x's 3, appropriate affect, intact judgment & insight - Labs CBC & Chem 7: 10/18/21 05:15 10/18/21 05:15 Labs: Abnormal Lab Results - Last 24 Hours (Table) 10/17/21 10/17/21 10/18/21 Range/Units 16:22 21:51 05:15 WBC 14.50 H (4.50-10.00) X 10*3/uL Immature Gran # 0.12 H (0.00-0.04) X 10*3/uL Neutrophils # 12.84 H (1.80-7.70) X 10*3/uL Lymphocytes # 0.67 L (0.90-5.00) X 10*3/uL Eosinophils # 0 L (0.04-0.35) X 10*3/uL Anion Gap (10.00-18.00) mmol/L BUN/Creatinine Ratio (12.00-20.00) Ratio Glucose (70-110) mg/dL POC Glucose (mg/dL) 213 H 191 H (75-99) mg/dL Calcium (8.7-10.3) mg/dL 10/18/21 10/18/21 10/18/21 Range/Units 05:15 08:02 11:42 WBC (4.50-10.00) X 10*3/uL Immature Gran # (0.00-0.04) X 10*3/uL Neutrophils # (1.80-7.70) X 10*3/uL Lymphocytes # (0.90-5.00) X 10*3/uL Eosinophils # (0.04-0.35) X 10*3/uL Anion Gap 8.80 L (10.00-18.00) mmol/L BUN/Creatinine Ratio 32.25 H (12.00-20.00) Ratio Glucose 209 H (70-110) mg/dL POC Glucose (mg/dL) 174 H 122 H (75-99) mg/dL Calcium 8.5 L (8.7-10.3) mg/dL Microbiology - Last 24 Hours (Table) 10/17/21 Unknown Sputum Culture - Preliminary Sputum 10/14/21 16:25 Blood Culture - Preliminary Blood No Growth after 72 hours 10/14/21 16:25 Blood Culture - Preliminary Blood No Growth after 72 hours Assessment and Plan Assessment: Acute hypoxic respiratory failure Bilateral interstitial pneumonia Pulmonary fibrosis/interstitial lung disease acute exacerbation of CHF diastolic heart failure appears to be less likely given normal echocardiogram with mild MR and TR Mediastinal lymphadenopathy along with pulmonary infiltrate likely reactive Severe degree of electrolyte imbalance with hypokalemia and hypomagnesemia History of coronary artery disease Uncontrolled diabetes Plan: Reviewed echocardiogram findings Antibiotic therapy as per primary service Continue oral prednisone 40 mg daily for 5 days followed by 20 mg daily for another 5 days Continue bronchodilators and inhaled corticosteroids in the form of nebulizer Currently taper oxygen down as tolerated, patient will need 2 L nasal cannula at home for now Reviewed chest x-ray finding with the patient along with computed tomography scan finding Options discussed with patient about aggressive approach of lung biopsy currently patient is not interested in pursuing it we'll defer it for later discussion We'll follow closely further recommendations pending plan of care as per clinical response of the patient Time with Patient: Greater than 30
[2021-10-18 15:42] VITALS: PULSE 84
== END 2021-10-18 15:50 | disposition home or self-care (01) | DRG 196 ==
LOC: EC 15:48 → 3SCARD 18:46 → 2SICU 10-15 15:43 → 4SSUR 10-17 08:20
PROVIDERS: ADMIT Family Medicine; ATTEND Family Medicine
DX: J84.9 Interstitial pulmonary disease, unspecified (principal); J96.01 Acute respiratory failure with hypoxia; I50.23 Acute on chronic systolic (congestive) heart failure; J47.0 Bronchiectasis with acute lower respiratory infection; I45.2 Bifascicular block; J84.10 Pulmonary fibrosis, unspecified; I11.0 Hypertensive heart disease with heart failure; E11.65 Type 2 diabetes mellitus with hyperglycemia; D86.0 Sarcoidosis of lung; Z20.822 Contact with and (suspected) exposure to COVID-19; E83.42 Hypomagnesemia; E87.6 Hypokalemia; E78.5 Hyperlipidemia, unspecified; K21.9 Gastro-esophageal reflux disease without esophagitis; I08.1 Rheumatic disorders of both mitral and tricuspid valves; I25.10 Atherosclerotic heart disease of native coronary artery without angina pectoris; I25.2 Old myocardial infarction; R59.0 Localized enlarged lymph nodes; Z28.310 Unvaccinated for COVID-19; Z77.090 Contact with and (suspected) exposure to asbestos; Z79.82 Long term (current) use of aspirin; Z79.84 Long term (current) use of oral hypoglycemic drugs; Z79.899 Other long term (current) drug therapy; Z85.820 Personal history of malignant melanoma of skin; Z95.5 Presence of coronary angioplasty implant and graft; Z87.19 Personal history of other diseases of the digestive system; Z87.39 Personal history of other diseases of the musculoskeletal system and connective tissue; Z87.891 Personal history of nicotine dependence; Z87.01 Personal history of pneumonia (recurrent); Z98.890 Other specified postprocedural states; Z88.0 Allergy status to penicillin; Z88.2 Allergy status to sulfonamides; Z88.8 Allergy status to other drugs, medicaments and biological substances; Z88.1 Allergy status to other antibiotic agents; Z91.041 Radiographic dye allergy status; Z80.9 Family history of malignant neoplasm, unspecified
CPT/HCPCS: 36415; 71045; 71275; 80048; 80053; 83036; 83605; 83735; 83880; 84132; 84145; 84484; 85025; 85027; 85379; 85610; 85730; 86140; 87040; 87070; 87205; 87449; 87502; 87635; 93005; 93306; 94640; 94760; 96365; 96366; 96367; 96368; 96372; 96375; 96376; 99291

== ENCOUNTER → 2021-12-26 | Outpatient (CLI) | payer MEDICARE, BC ==
--- NOTE | 2021-12-26 12:20 | XR ---
EXAMINATION TYPE: XR chest 2V DATE OF EXAM: 12/26/2021 11:16 AM COMPARISON: Chest radiographs from 10/31/2021, CT angiogram 10/14/2021. TECHNIQUE: XR chest 2V Frontal and lateral views of the chest. CLINICAL INDICATION:Male, 76 years old with history of concern for pneumonia [id number] [id number]; FINDINGS: Lungs/Pleura: Low lung volumes are present. Reticular opacities most pronounced projecting the heart which is felt to been present mildly on prior dating 10/17/2021 There is no evidence of pleural effusi on, focal consolidation, or pneumothorax. Pulmonary vascularity: Unremarkable. Heart/mediastinum: Cardiomediastinal silhouette is unremarkable. Musculoskeletal: No acute osseous pathology. Similar appearance of the right proximal humerus probabl e postinterventional changes. IMPRESSION: Low lung volumes with reticular opacities which could be sequela prior infection seen on 10/14/2021 an d/or representing atelectasis. No focal airspace consolidation definitively visualized.
== END | disposition home or self-care (01) ==
LOC: RADXRMAIN 11:04
PROVIDERS: ATTEND Internal Medicine Sleep Medicine
DX: R91.8 Other nonspecific abnormal finding of lung field (principal)
CPT/HCPCS: 71046

== ENCOUNTER → 2022-04-08 | Outpatient (CLI) | payer MEDICARE, BC ==
[2022-04-08 11:33] LABS: Basophils # (A) 0.05 X 10*3/uL (0.00-0.10); Basophils % (A) 0.4 %; Eosinophils # (A) 0.15 X 10*3/uL (0.04-0.35); Eosinophils % (A) 1.2 %; HCT 43.3 % (39.6-50.0); HGB 14.5 g/dL (13.0-17.0); Immature Grans, Automated 0.4 %; Lymphocytes # (A) 1.18 X 10*3/uL (0.90-5.00); Lymphocytes % (A) 9.3 %; MCH 29.6 pg (27.0-32.0); MCHC 33.5 g/dL (32.0-37.0); MCV 88.4 fL (80.0-97.0); Mean Platelet Volume 10.7 fL (9.5-12.2); Monocytes # (A) 0.91 X 10*3/uL (0.20-1.00); Monocytes % (A) 7.2 %; NRBC Per 100 WBC 0 /100 WBCS (0.0-0.0); Neutrophils # (A) 10.31 X 10*3/uL (1.80-7.70); Neutrophils % (A) 81.5 %; Platelet Count 276 X 10*3/uL (140-440); RDW 13.5 % (11.5-14.5); WBC 12.65 X 10*3/uL (4.50-10.00)
[2022-04-08 11:47] LABS: ALT 16 U/L (10-49); AST 22 U/L (14-35); African American GFR (CKD) 92.3 (60.0-200.0); Albumin 4.2 g/dL (3.8-4.9); Albumin/Globulin Ratio 1.45 (1.60-3.17); Alkaline Phosphatase 75 U/L (41-126); BUN/Creat Ratio 15.17 Ratio (12.00-20.00); Calcium 9.2 mg/dL (8.7-10.3); Carbon Dioxide 26.7 mmol/L (20.0-27.5); Chloride 101 mmol/L (96-109); Globulin 2.9 g/dL (1.6-3.3); Glucose 189 mg/dL (70-110); LDL Cholesterol,Calculated 65.4 mg/dL (0.0-131.0); Non-African American GFR(CKD) 79.6 (60.0-200.0); Potassium 4.1 mmol/L (3.5-5.5); Sodium 140 mmol/L (135-145)
== END | disposition home or self-care (01) ==
LOC: LABWHC1 07:01
PROVIDERS: ATTEND Internal Medicine Endocrinology, Diabetes & Metabolism
DX: Z20.822 Contact with and (suspected) exposure to COVID-19 (principal); Z12.5 Encounter for screening for malignant neoplasm of prostate; E11.65 Type 2 diabetes mellitus with hyperglycemia; E78.5 Hyperlipidemia, unspecified
CPT/HCPCS: 84439; 80061; 80053; 84443; 85025; 82043; 82570; 83036; 86769; 36415; G0103

== ENCOUNTER → 2023-04-10 | Outpatient (CLI) | payer MEDICARE, BC ==
[2023-04-10 08:16] LABS: Appearance,Urine Clear (Clear); Bilirubin,Urine Negative (Negative); Blood,Urine Negative (Negative); Color,Urine Yellow; Glucose,Urine (UA) Negative (Negative); Ketones,Urine Trace (Negative); Leukocyte Esterase,Urine Negative (Negative); Nitrite,Urine Negative (Negative); PH, Urine 6.5 (5.0-8.0); Protein,Urine Trace (Negative); Specific Gravity,Urine 1.022 (1.001-1.035); Urobilinogen,Urine <2.0 mg/dL (<2.0)
[2023-04-10 11:00] LABS: Basophils # (A) 0.05 X 10*3/uL (0.00-0.10); Basophils % (A) 0.5 %; Eosinophils # (A) 0.17 X 10*3/uL (0.04-0.35); Eosinophils % (A) 1.6 %; HCT 43.9 % (39.6-50.0); HGB 14.9 d/dL (13.0-17.0); Lymphocytes # (A) 1.42 X 10*3/uL (0.90-5.00); MCHC 33.9 d/dL (32.0-37.0); MCV 88.5 FL (80.0-97.0); Mean Platelet Volume 10.7 FL (9.5-12.2); Monocytes # (A) 0.81 X 10*3/uL (0.20-1.00); Monocytes % (A) 7.4 %; NRBC Per 100 WBC 0 X 10*3/uL (0.00-0.01); Neutrophils # (A) 8.42 X 10*3/uL (1.80-7.70); Platelet Count 269 X 10*3/uL (140-440); RBC 4.96 X 10*6/uL (4.40-5.60); RDW 13.2 % (11.5-14.5); WBC 10.93 X 10*3/uL (4.50-10.00)
[2023-04-10 11:33] LABS: ALT 19 U/L (10-49); AST 18 U/L (14-35); Albumin 4.1 d/dL (3.8-4.9); Albumin/Globulin Ratio 1.37 Ratio (1.60-3.17); Alkaline Phosphatase 80 U/L (41-126); Blood Urea Nitrogen 20.3 mg/dL (9.0-27.0); Calcium 9.5 mg/dL (8.7-10.3); Carbon Dioxide 26.7 mmol/L (21.6-31.8); Chloride 96 mmol/L (96-109); Chol/HDL Ratio 2.98 Ratio; Glucose 176 mg/dL (70-110); LDL Cholesterol,Calculated 61.1 mg/dL (0.0-131.0); Prostate Specific Antigen 1.57 ng/mL (0.000-6.500); Sodium 136 mmol/L (135-145); T4, Free (Free Thyroxine) 1.37 ng/dL (0.80-1.80); Total Bilirubin 0.7 mg/dL (0.3-1.2); Total Protein 7.1 d/dL (6.2-8.2)
== END | disposition home or self-care (01) ==
LOC: LABWHC1 06:54
PROVIDERS: ATTEND Family Medicine
DX: Z00.00 Encounter for general adult medical examination without abnormal findings (principal); Z12.5 Encounter for screening for malignant neoplasm of prostate; I10 Essential (primary) hypertension; E11.9 Type 2 diabetes mellitus without complications; E78.2 Mixed hyperlipidemia; J44.9 Chronic obstructive pulmonary disease, unspecified
CPT/HCPCS: 36415; 80053; 80061; 81003; 83036; 84153; 84439; 84443; 85025

== ENCOUNTER → 2023-10-10 | Outpatient (CLI) | payer MEDICARE, BC ==
[2023-10-10 08:27] LABS: Appearance,Urine Clear (Clear); Bilirubin,Urine Negative (Negative); Blood,Urine Negative (Negative); Color,Urine Colorless; Glucose,Urine (UA) Negative (Negative); Ketones,Urine 1+ (Negative); Leukocyte Esterase,Urine Negative (Negative); Nitrite,Urine Negative (Negative); Protein,Urine Negative (Negative); Specific Gravity,Urine 1.014 (1.001-1.035); Urobilinogen,Urine <2.0 mg/dL (<2.0)
[2023-10-10 16:30] LABS: Basophils # (A) 0.05 X 10*3/uL (0.00-0.10); Basophils % (A) 0.4 %; Eosinophils # (A) 0.09 X 10*3/uL (0.04-0.35); Eosinophils % (A) 0.8 %; HCT 42.2 % (39.6-50.0); HGB 14.4 g/dL (13.0-17.0); Lymphocytes # (A) 1.17 X 10*3/uL (0.90-5.00); Lymphocytes % (A) 9.8 %; MCH 29.9 pg (27.0-32.0); MCHC 34.1 g/dL (32.0-37.0); MCV 87.7 FL (80.0-97.0); Mean Platelet Volume 10.5 FL (9.5-12.2); Monocytes # (A) 0.98 X 10*3/uL (0.20-1.00); Monocytes % (A) 8.2 %; NRBC Per 100 WBC 0 X 10*3/uL (0.00-0.01); Neutrophils # (A) 9.56 X 10*3/uL (1.80-7.70); Neutrophils % (A) 80.2 %; Platelet Count 268 X 10*3/uL (140-440); RBC 4.81 X 10*6/uL (4.40-5.60); RDW 13.7 % (11.5-14.5); WBC 11.92 X 10*3/uL (4.50-10.00)
[2023-10-10 16:38] LABS: ALT 18 U/L (10-49); AST 24 U/L (14-35); Albumin 4.3 g/dL (3.8-4.9); Albumin/Globulin Ratio 1.54 Ratio (1.60-3.17); Alkaline Phosphatase 82 U/L (41-126); BUN/Creat Ratio 20.44 Ratio (12.00-20.00); Blood Urea Nitrogen 18.4 mg/dL (9.0-27.0); Calcium 9.7 mg/dL (8.7-10.3); Carbon Dioxide 23.4 mmol/L (21.6-31.8); Chloride 102 mmol/L (96-109); Chol/HDL Ratio 2.87 Ratio; Globulin 2.8 g/dL (1.6-3.3); Glucose 174 mg/dL (70-110); LDL Cholesterol,Calculated 56.8 mg/dL (0.0-131.0); Potassium 3.8 mmol/L (3.5-5.5); Sodium 139 mmol/L (135-145); Total Bilirubin 0.9 mg/dL (0.3-1.2); Total Protein 7.1 g/dL (6.2-8.2); VLDL Calculation 19.44 mg/dL (5.00-40.00)
== END | disposition home or self-care (01) ==
LOC: LABWHC1 06:48
PROVIDERS: ATTEND Family Medicine
DX: E11.9 Type 2 diabetes mellitus without complications (principal); E78.5 Hyperlipidemia, unspecified; J44.9 Chronic obstructive pulmonary disease, unspecified; I10 Essential (primary) hypertension
CPT/HCPCS: 36415; 80053; 80061; 81003; 83036; 85025

== ENCOUNTER → 2024-02-25 | Outpatient (CLI) | payer MEDICARE, BC ==
--- NOTE | 2024-02-25 10:20 | CT ---
EXAMINATION TYPE: CT chest wo con CT DLP: 304.40 mGycm, Automated exposure control for dose reduction was used. DATE OF EXAM: 02/25/2024 10:03 AM COMPARISON: CT chest 08/26/2023, 08/15/2022, CTA chest 10/14/2021. CLINICAL INDICATION:Male, 78 years old with history of J84.10 PULMONARY FIBROSIS, UNSPECIFIED; PHH, F OLLOW-UP COPD TECHNIQUE: Multiple axial images were obtained through the chest without IV contrast. Lack of IV or o ral contrast limits evaluation of solid and hollow organ viscera. . Coronal and sagittal reformats re viewed. FINDINGS: LUNGS/ PLEURA: No pneumothorax or pleural effusion. Redemonstration of diffuse scattered interstitial changes and subpleural areas reticulation throughout the lungs. Some cylindrical right lower lobe b ronchiectasis identified. No honeycombing identified. No focal consolidation. Small left lower lung p leural calcification redemonstrated. AIRWAY: Patent and unremarkable.. HEART: Size within normal limits. No pericardial effusion. Small coronary calcifications. MEDIASTINUM: No gross evidence of adenopathy. VASCULATURE: No aortic aneurysm. Mild atherosclerotic calcification of the aortic arch and its branc hes. MUSCULOSKELETAL: Mild disc degeneration changes are present throughout the thoracolumbar spine. SOFT TISSUES/LYMPH NODES: Unremarkable. LOWER NECK: No significant findings. UPPER ABDOMEN: Stable calcified 1.6 mm nodule within the right adrenal gland. Likely chronic. IMPRESSION: Similar chronic and fibrotic pulmonary changes from prior CT. No focal consolidation.
== END | disposition home or self-care (01) ==
LOC: RADCTMAIN 09:41
PROVIDERS: ATTEND Internal Medicine Sleep Medicine
DX: J84.10 Pulmonary fibrosis, unspecified (principal); J96.90 Respiratory failure, unspecified, unspecified whether with hypoxia or hypercapnia; J44.9 Chronic obstructive pulmonary disease, unspecified
CPT/HCPCS: 71250

== ENCOUNTER → 2024-03-29 | Day surgery (SDC) | payer MEDICARE, BC ==
[2024-03-25 10:36] VITALS: BMI 24.3
[~2024-03-29] MED LIST changes: -CLINDAMYCIN 900 MG in DEXTROSE 5% IN WATER 50 ML IVPB ONE; -DEXAMETHASONE SOD PHOSPHATE 10 MG/ML 1 ML VIAL IV ONE; -LACTATED RINGERS 1,000 ML IV SCH; +LIDOCAINE 1% (10MG/ML) FOR IV START INTRADERMA PRN; +LIDOCAINE 2% (PF) 20 MG/ML 5 ML VIAL ONE; -MIDAZOLAM 2 MG/2 ML VIAL IV PRN; +MIDAZOLAM 2 MG/2 ML VIAL ONE; -ONDANSETRON 4 MG/2 ML VIAL IVP ONE; +PROPOFOL 10 MG/ML 20 ML VIAL IV ONE; +fentaNYL (PF) 50 MCG/ML 2 ML AMP ONE
[2024-03-29] MEDS: LACTATED RINGERS 1,000 ML IV SCH (10:47)
[2024-03-29 10:49] VITALS: TEMP 97.6
[2024-03-29] MEDS: IV FLUID CONTINUATION 1,000 ML IV ONE (10:51)
[2024-03-29 11:01] LABS: Glucose,Whole Blood 177 mg/dL (70-110)
[2024-03-29] MEDS: LIDOCAINE 2% SYG (PF) 100 MG/5 ML MISCELLANE ONE (11:26)
--- NOTE | 2024-03-29 11:57 | P.PCN ---
Date of Procedure: 03/29/24 Preoperative Diagnosis: Pulmonary fibrosis, interstitial lung disease, pneumonia Postoperative Diagnosis: Interstitial lung disease, pneumonia Procedure(s) Performed: Bronchoscopy, bronchoalveolar lavage right upper lobe right lower lobe and left lower lobe Anesthesia: MAC Surgeon: Zoran Del Real Estimated Blood Loss (ml): 0 Condition: stable Disposition: same day Indications for Procedure: Interstitial lung disease, with progressive pulmonary fibrosis and symptoms of shortness of breath, evaluate for pneumonia Operative Findings: Scattered mucous plugs seen Description of Procedure: Informed consent obtained from the patient, fiberoptic bronchoscope was passed through the right nares, vocal cords inspected they were normal in structure and function, tip of the scope was passed beyond the vocal cords into the trachea, inspection done from right upper lobe, right middle lobe, right lower lobe along with subsegment followed by left upper lobe and left lower lobe subsegments. Mild erythema edema seen along with clear mucus plugging which were suctioned and clean. Bronchoalveolar lavage was performed from the right upper lobe and right lower lobe followed by left lower lobe patient tolerated procedure well no complication noted
[2024-03-29 12:32] VITALS: BP 144/70; PULSE 76; RESP 16
== END ==
LOC: ORWHC2ENDO 10:19
PROVIDERS: ATTEND Internal Medicine Sleep Medicine
DX: J84.10 Pulmonary fibrosis, unspecified
CPT/HCPCS: 31624; 87070; 87102; 87116; 87205; 87206; 87496; 87498; 87502; 87529; 87634; 87635; 87798; 88108; 88305

== ENCOUNTER → 2024-04-15 | Outpatient (CLI) | payer MEDICARE, BC ==
[2024-04-15 08:28] LABS: Appearance,Urine Clear (Clear); Color,Urine Light Yellow
[2024-04-15 08:29] LABS: Bilirubin,Urine Negative (Negative); Blood,Urine Negative (Negative); Glucose,Urine (UA) Negative (Negative); Ketones,Urine Negative (Negative); PH, Urine 6.5 (5.0-8.0); Protein,Urine Trace (Negative); Specific Gravity,Urine 1.014 (1.001-1.035)
[2024-04-15 08:30] LABS: Leukocyte Esterase,Urine Negative (Negative); Nitrite,Urine Negative (Negative); Urobilinogen,Urine <2.0 mg/dL (<2.0)
[2024-04-15 10:36] LABS: Basophils # (A) 0.04 X 10*3/uL (0.00-0.10); Basophils % (A) 0.4 %; Eosinophils # (A) 0.14 X 10*3/uL (0.04-0.35); Eosinophils % (A) 1.4 %; HCT 42.9 % (39.6-50.0); HGB 14.5 g/dL (13.0-17.0); Lymphocytes # (A) 1.13 X 10*3/uL (0.90-5.00); Lymphocytes % (A) 11.5 %; MCH 30.1 pg (27.0-32.0); MCHC 33.8 g/dL (32.0-37.0); MCV 89.2 FL (80.0-97.0); Mean Platelet Volume 10.6 FL (9.5-12.2); Monocytes # (A) 0.86 X 10*3/uL (0.20-1.00); Monocytes % (A) 8.7 %; NRBC Per 100 WBC 0 X 10*3/uL (0.00-0.01); Neutrophils # (A) 7.64 X 10*3/uL (1.80-7.70); Neutrophils % (A) 77.6 %; Platelet Count 263 X 10*3/uL (140-440); RBC 4.81 X 10*6/uL (4.40-5.60); RDW 13.1 % (11.5-14.5); WBC 9.85 X 10*3/uL (4.50-10.00)
[2024-04-15 11:00] LABS: ALT 13 U/L (10-49); AST 17 U/L (14-35); Albumin 4.1 g/dL (3.8-4.9); Albumin/Globulin Ratio 1.52 Ratio (1.60-3.17); Alkaline Phosphatase 79 U/L (41-126); Blood Urea Nitrogen 11.6 mg/dL (9.0-27.0); Calcium 9.3 mg/dL (8.7-10.3); Carbon Dioxide 24.6 mmol/L (21.6-31.8); Chloride 102 mmol/L (96-109); Chol/HDL Ratio 3.16 Ratio; Globulin 2.7 g/dL (1.6-3.3); Glucose 184 mg/dL (70-110); LDL Cholesterol,Calculated 67.8 mg/dL (0.0-131.0); Potassium 4.2 mmol/L (3.5-5.5); Sodium 140 mmol/L (135-145); T4, Free (Free Thyroxine) 1.28 ng/dL (0.80-1.80); Total Bilirubin 0.7 mg/dL (0.3-1.2); Total Protein 6.8 g/dL (6.2-8.2)
== END | disposition home or self-care (01) ==
LOC: LABWHC1 06:59
PROVIDERS: ATTEND Family Medicine
CPT/HCPCS: 36415; 80053; 80061; 81003; 83036; 84439; 84443; 85025

== ENCOUNTER → 2024-10-18 | Outpatient (CLI) | payer MEDICARE, BC ==
[2024-10-18 11:33] LABS: Basophils # (A) 0.05 X 10*3/uL (0.00-0.10); Basophils % (A) 0.4 %; Eosinophils # (A) 0.19 X 10*3/uL (0.04-0.35); Eosinophils % (A) 1.6 %; HCT 45.9 % (39.6-50.0); HGB 15.3 g/dL (13.0-17.0); Lymphocytes % (A) 10.2 %; MCH 29.9 pg (27.0-32.0); MCHC 33.3 g/dL (32.0-37.0); MCV 89.6 FL (80.0-97.0); Mean Platelet Volume 10.8 FL (9.5-12.2); Monocytes # (A) 0.99 X 10*3/uL (0.20-1.00); Monocytes % (A) 8.4 %; NRBC Per 100 WBC 0 X 10*3/uL (0.00-0.01); Neutrophils # (A) 9.25 X 10*3/uL (1.80-7.70); Neutrophils % (A) 79.1 %; Platelet Count 310 X 10*3/uL (140-440); RBC 5.12 X 10*6/uL (4.40-5.60); RDW 13.3 % (11.5-14.5); WBC 11.72 X 10*3/uL (4.50-10.00)
[2024-10-18 11:58] LABS: ALT 18 U/L (10-49); AST 22 U/L (14-35); Albumin 4.1 g/dL (3.8-4.9); Albumin/Globulin Ratio 1.46 Ratio (1.60-3.17); Alkaline Phosphatase 82 U/L (41-126); Calcium 9.4 mg/dL (8.7-10.3); Carbon Dioxide 25.6 mmol/L (21.6-31.8); Chloride 103 mmol/L (96-109); Chol/HDL Ratio 2.63 Ratio; Globulin 2.8 g/dL (1.6-3.3); Glucose 169 mg/dL (70-110); LDL Cholesterol,Calculated 44.3 mg/dL (0.0-131.0); Magnesium 1.3 mg/dL (1.5-2.4); Potassium 4.1 mmol/L (3.5-5.5); Sodium 140 mmol/L (135-145); T4, Free (Free Thyroxine) 1.42 ng/dL (0.80-1.80); Total Bilirubin 0.6 mg/dL (0.3-1.2); Total Protein 6.9 g/dL (6.2-8.2); VLDL Calculation 18.34 mg/dL (5.00-40.00)
[2024-10-18 12:45] LABS: Vitamin B12 >3600.0 pg/mL (200.0-944.0)
== END | disposition home or self-care (01) ==
LOC: LABWHC1 07:08
PROVIDERS: ATTEND Family Medicine
DX: E11.9 Type 2 diabetes mellitus without complications (principal); E55.9 Vitamin D deficiency, unspecified; E78.5 Hyperlipidemia, unspecified; I10 Essential (primary) hypertension
CPT/HCPCS: 36415; 80053; 80061; 82306; 82607; 83036; 83735; 84439; 84443; 85025